=== PATIENT | male | born 1960 | race Caucasian/White ===

== ENCOUNTER → 2016-07-18 | Outpatient (CLI) | payer MEDICARE ==
--- NOTE | 2016-07-18 13:31 | REP ---
UNILATERAL LEFT RIBS, PA CHEST, FIVE VIEWS: HISTORY: Injury. The lungs are clear. The heart is normal in size. The pulmonary vasculature is normal in appearance. The bony structure is intact. IMPRESSION: No acute disease. Signed by Milan Desir MD 07/18/2016 01:32 P
== END ==
LOC: M LRY 09:15
PROVIDERS: ATTEND Physician Assistant
DX: S29.8XXA Other specified injuries of thorax, initial encounter (principal); Z12.5 Encounter for screening for malignant neoplasm of prostate; I25.10 Atherosclerotic heart disease of native coronary artery without angina pectoris; X58.XXXA Exposure to other specified factors, initial encounter; Y92.89 Other specified places as the place of occurrence of the external cause; Y93.89 Activity, other specified; Y99.8 Other external cause status
CPT/HCPCS: 71101; 80053; 80061; G0103; G0463

== ENCOUNTER → 2016-07-18 | Outpatient (REF) | payer MEDICARE ==
[2016-07-18 12:06] LABS: ALBUMIN 3.7 GM/DL (3.2-5.2); ALBUMIN/GLOBULIN RATIO 1.37 (1.00-1.93); ALKALINE PHOSPHATASE 122 U/L (45-117); ALT/SGPT 26 U/L (12-78); ANION GAP 6 MEQ/L (8-16); AST/SGOT 18 U/L (15-37); BILIRUBIN,TOTAL 0.3 MG/DL (0.2-1.0); BLOOD UREA NITROGEN 13 MG/DL (7-18); CALCIUM LEVEL 8.8 MG/DL (8.5-10.1); CARBON DIOXIDE LEVEL 32 MEQ/L (21-32); CHLORIDE LEVEL 104 MEQ/L (98-107); CHOLESTEROL LEVEL 132 MG/DL (<200); CREATININE FOR GFR 0.76 MG/DL (0.70-1.30); GLOMERULAR FILTRATION RATE > 60.0 (>56); GLUCOSE, FASTING 99 MG/DL (70-105); POTASSIUM SERUM 4.8 MEQ/L (3.5-5.1); SODIUM LEVEL 142 MEQ/L (136-145); TOTAL PROTEIN 6.4 GM/DL (6.4-8.2); TRIGLYCERIDES LEVEL 162 MG/DL (<150)
== END ==
LOC: M SFHCLERA 09:05
PROVIDERS: ATTEND Physician Assistant
DX: I25.10 Atherosclerotic heart disease of native coronary artery without angina pectoris (principal); Z12.5 Encounter for screening for malignant neoplasm of prostate
CPT/HCPCS: 80053; 80061; G0103

== ENCOUNTER → 2016-12-27 | Outpatient (REF) | payer MEDICARE ==
[2016-12-27 12:16] LABS: ALBUMIN 3.5 GM/DL (3.2-5.2); ALBUMIN/GLOBULIN RATIO 1.21 (1.00-1.93); ALKALINE PHOSPHATASE 132 U/L (45-117); ALT/SGPT 38 U/L (12-78); ANION GAP 5 MEQ/L (8-16); AST/SGOT 26 U/L (15-37); BILIRUBIN,TOTAL 0.5 MG/DL (0.2-1.0); BLOOD UREA NITROGEN 11 MG/DL (7-18); CARBON DIOXIDE LEVEL 32 MEQ/L (21-32); CHLORIDE LEVEL 103 MEQ/L (98-107); CHOLESTEROL LEVEL 157 MG/DL (<200); CREATININE FOR GFR 0.74 MG/DL (0.70-1.30); GLOMERULAR FILTRATION RATE > 60.0 (>56); GLUCOSE, FASTING 117 MG/DL (70-105); POTASSIUM SERUM 4.4 MEQ/L (3.5-5.1); SODIUM LEVEL 140 MEQ/L (136-145); TOTAL PROTEIN 6.4 GM/DL (6.4-8.2); TRIGLYCERIDES LEVEL 333 MG/DL (<150)
== END ==
LOC: M SFHCLERA 10:04
PROVIDERS: ATTEND Physician Assistant
DX: E78.2 Mixed hyperlipidemia (principal)

== ENCOUNTER → 2017-10-24 | Outpatient (REF) | payer MEDICARE ==
[2017-10-24 17:08] LABS: ALBUMIN/GLOBULIN RATIO 1.25 (1.00-1.93); ALKALINE PHOSPHATASE 121 U/L (45-117); ALT/SGPT 54 U/L (12-78); ANION GAP 5 MEQ/L (8-16); AST/SGOT 42 U/L (7-37); BILIRUBIN,TOTAL 0.7 MG/DL (0.2-1.0); BLOOD UREA NITROGEN 10 MG/DL (7-18); CALCIUM LEVEL 9.4 MG/DL (8.5-10.1); CARBON DIOXIDE LEVEL 30 MEQ/L (21-32); CHLORIDE LEVEL 104 MEQ/L (98-107); CHOLESTEROL LEVEL 136 MG/DL (<200); CREATININE FOR GFR 0.94 MG/DL (0.70-1.30); GLOMERULAR FILTRATION RATE > 60.0 (>56); GLUCOSE, FASTING 108 MG/DL (70-100); HDL CHOLESTEROL 34 MG/DL (>40); LDL CHOLESTEROL 39.8 MG/DL (<100); NON-HDL-C 102 MG/DL; POTASSIUM SERUM 5.3 MEQ/L (3.5-5.1); SODIUM LEVEL 139 MEQ/L (136-145); TOTAL PROTEIN 7.2 GM/DL (6.4-8.2); TRIGLYCERIDES LEVEL 311 MG/DL (<150); URIC ACID 6.6 MG/DL (3.5-7.2)
[2017-10-24 17:11] LABS: ESTIMATED AVERAGE GLUCOSE 128 MG/DL (60-110); HEMOGLOBIN A1c 6.1 %
== END ==
LOC: M SFHCLERA 10:44
DX: I25.10 Atherosclerotic heart disease of native coronary artery without angina pectoris (principal); M1A.09X0 Idiopathic chronic gout, multiple sites, without tophus (tophi); R73.01 Impaired fasting glucose
CPT/HCPCS: 84550

== ENCOUNTER → 2017-12-05 | Outpatient (REF) | payer MEDICARE ==
[2017-12-05 11:33] LABS: POTASSIUM SERUM 4.4 MEQ/L (3.5-5.1)
== END ==
LOC: M SFHCLERA 09:28
DX: E87.5 Hyperkalemia (principal)
CPT/HCPCS: 84132

== ENCOUNTER → 2018-03-27 | Outpatient (CLI) | payer MEDICARE | LOC: M SLEEP HO 12:55 | DX: G47.30 Sleep apnea, unspecified (principal) | CPT/HCPCS: G0399 ==

== ENCOUNTER → 2018-07-24 | Outpatient (REF) | payer MEDICARE ==
[2018-07-24 17:04] LABS: BASO # 0.1 10^3/uL (0.0-0.2); BASO % 0.8 % (0.0-1.0); EOS # 0.2 10^3/uL (0.0-0.50); EOS % 1.5 % (0.0-3.0); HEMATOCRIT 47.1 % (42.0-52.0); HEMOGLOBIN 15.8 g/dl (13.5-17.5); LYMPH # 2.4 10^3/uL (1.5-4.5); LYMPH % 23.8 % (24.0-44.0); MEAN CORPUSCULAR HEMOGLOBIN 29.8 pg (27.0-33.0); MEAN CORPUSCULAR HGB CONC 33.5 g/dl (32.0-36.5); MEAN CORPUSCULAR VOLUME 88.9 fl (80.0-96.0); MONO # 0.9 10^3/uL (0.0-0.8); NEUTROPHILS # 6.6 10^3/uL (1.8-7.7); NEUTROPHILS % 64.6 % (36.0-66.0); PLATELET COUNT, AUTOMATED 266 10^3/uL (150-450); WHITE BLOOD COUNT 10.2 10^3/uL (4.0-10.0)
[2018-07-24 17:16] LABS: HEMOGLOBIN A1c 6.7 %
[2018-07-24 17:17] LABS: ALBUMIN 4.5 GM/DL (3.2-5.2); ALT/SGPT 50 U/L (12-78); BILIRUBIN,TOTAL 0.7 MG/DL (0.2-1.0); BLOOD UREA NITROGEN 8 MG/DL (7-18); CALCIUM LEVEL 9.5 MG/DL (8.5-10.1); CARBON DIOXIDE LEVEL 28 MEQ/L (21-32); CHLORIDE LEVEL 97 MEQ/L (98-107); CREATININE FOR GFR 0.99 MG/DL (0.70-1.30); GLOMERULAR FILTRATION RATE > 60.0 (>56); GLUCOSE, FASTING 107 MG/DL (70-100); POTASSIUM SERUM 4.3 MEQ/L (3.5-5.1); SODIUM LEVEL 137 MEQ/L (136-145); TOTAL PROTEIN 7.9 GM/DL (6.4-8.2)
== END ==
LOC: M SFHCLERA 14:11
PROVIDERS: ATTEND Family Medicine
DX: I10 Essential (primary) hypertension (principal); R73.09 Other abnormal glucose

== ENCOUNTER → 2018-08-06 | Outpatient (REF) | payer MEDICARE ==
[2018-08-06 17:26] LABS: HEMOGLOBIN A1c 6.9 %
== END ==
LOC: M SFHCLERA 10:18
PROVIDERS: ATTEND Family Medicine
DX: R73.03 Prediabetes (principal)
CPT/HCPCS: 83036; G0463

== ENCOUNTER 2018-10-15 10:01 | Emergency (ER) | payer MEDICARE ==
[~2018-10-15] VITALS: Ht 182.9 cm; Wt 115.9 kg
[2018-10-15] MEDS ORDERED: AMLO5TAB6 (10:12)
[2018-10-15] MEDS ORDERED: LISI10TA4 (10:12)
[2018-10-15] MEDS ORDERED: ALLO100T (10:12)
[2018-10-15] MEDS ORDERED: METF500T4 (10:13)
[2018-10-15] MEDS ORDERED: TRAZ-163 (10:13)
[2018-10-15] MEDS ORDERED: ROSU5TAB4 PO (10:13)
[2018-10-15] MEDS ORDERED: CLON1TAB8 (10:13)
[2018-10-15] MEDS ORDERED: ROPI2TAB24 (10:13)
[2018-10-15] MEDS ORDERED: KETOROLAC 30 MG/ML VIAL (J1885) IV ONE (11:15)
[2018-10-15] MEDS ORDERED: methylPREDNISolone INJ 125 MG/2 ML VIAL (J2930) IV ONE (11:15)
[2018-10-15] MEDS ORDERED: BUPIVACAINE HCL 0.25% 10 ML VIAL SC ONE (11:15)
[2018-10-15 11:30] LABS: BASO # 0.1 10^3/uL (0.0-0.2); BASO % 0.6 % (0.0-1.0); EOS # 0.2 10^3/uL (0.0-0.50); EOS % 2.3 % (0.0-3.0); HEMATOCRIT 45.1 % (42.0-52.0); HEMOGLOBIN 15.1 g/dl (13.5-17.5); LYMPH % 29.1 % (24.0-44.0); MEAN CORPUSCULAR HEMOGLOBIN 30.6 pg (27.0-33.0); MEAN CORPUSCULAR HGB CONC 33.5 g/dl (32.0-36.5); MEAN CORPUSCULAR VOLUME 91.3 fl (80.0-96.0); MONO # 0.8 10^3/uL (0.0-0.8); MONO % 7.6 % (0.0-5.0); NEUTROPHILS # 6.2 10^3/uL (1.8-7.7); NEUTROPHILS % 59.6 % (36.0-66.0); PLATELET COUNT, AUTOMATED 255 10^3/uL (150-450); RED BLOOD COUNT 4.94 10^6/uL (4.30-6.10); WHITE BLOOD COUNT 10.3 10^3/uL (4.0-10.0)
[2018-10-15 11:53] LABS: BLOOD UREA NITROGEN 14 MG/DL (7-18); CARBON DIOXIDE LEVEL 27 MEQ/L (21-32); CHLORIDE LEVEL 102 MEQ/L (98-107); CREATININE FOR GFR 0.72 MG/DL (0.70-1.30); GLOMERULAR FILTRATION RATE > 60.0 (>56); GLUCOSE, FASTING 96 MG/DL (70-100); POTASSIUM SERUM 4.7 MEQ/L (3.5-5.1); SODIUM LEVEL 137 MEQ/L (136-145)
[2018-10-15 11:58] LABS: ERYTHROCYTE SEDIMENTATION RATE 8 mm/hr (0-20)
[2018-10-15] MEDS ORDERED: MORPHINE 4 MG/ML 1ML VIAL/SYRINGE (J2270) IV ONE (12:15)
--- NOTE | 2018-10-15 16:57 | REP ---
Emergency MRI study of the cervical spine without contrast: History: Right arm radiculopathy. Pain and numbness. Neck pain. Pain extending into the right hand. No comparison imaging. Technique: Sagittal and axial T1 and T2-weighted scans are acquired in the usual fashion with and without fat saturation. Sequences include spin echo, turbo spin-echo, and STIR imaging sequences. Findings: There is straightening of the normal cervical lordosis. Cortical and medullary bone signal intensity are normal. Vertebral body heights are preserved. Alignment is normal. Craniocervical junction is unremarkable. Cervical cord is normal in coarse, caliber and signal intensity on T1 and T2-weighted scans. Axial and sagittal images obtained at the C2-3 level demonstrate mild central disc bulging. No neural foraminal narrowing or central canal stenosis is seen. At C3-4, there is also mild diffuse disc bulging effacing the ventral subarachnoid space. No neural foraminal narrowing or central canal stenosis. At C4-5, there is disc space narrowing and diffuse disc bulging and posterior osteophytic ridging. There is left-sided mild uncovertebral spurring. No central canal stenosis or cord compression. At C5-6, there is disc space narrowing. A left posterior disc protrusion with osteophytic ridging is seen effacing the left ventral margin of the cord and subarachnoid space. There is left-sided neural foraminal narrowing at C5-6. Minimal right-sided uncovertebral spurs are seen at C5-6. At C6-7, there is mild diffuse disc bulging and osteophytic ridging. There is mild left and minimal right-sided uncovertebral spurring. No cord compression. At the C7-T1, there is a right sided disc herniation which effaces the thecal sac at the right ventral lateral margin of the cord at the medial aspect of the neural foramen. At the T1-2, there is a bilateral disc bulge as well, mild in degree. Impression: Degenerative spondylosis changes. Multilevel uncovertebral spurring on the left. There is a right posterolateral disc herniation at C7-T1 compressing the thecal sac along its ventral lateral margin and narrowing the neural foramen. Electronically Signed by Skip Hollsi MD 10/15/2018 06:56 P
[2018-10-15] MEDS ORDERED: GABAPENTIN 300 MG CAP PO ONE (17:30)
[2018-10-15 17:31] VITALS: BP 133/75
[2018-10-15] MEDS ORDERED: PRED10TA2 PO (17:37)
[2018-10-15] MEDS ORDERED: NEUR300C PO (17:37)
--- NOTE | 2018-10-16 11:02 | ED PDOC ---
Post-Departure Follow-Up dr jauregui faxed formal report of mri c spine for fu Jt Darnell MD Oct 16, 2018 11:01
== END 2018-10-15 17:46 | disposition home or self-care (01) ==
LOC: M ED 10:01
DX: M54.12 Radiculopathy, cervical region (principal); M47.13 Other spondylosis with myelopathy, cervicothoracic region; M50.223 Other cervical disc displacement at C6-C7 level; M51.24 Other intervertebral disc displacement, thoracic region; I10 Essential (primary) hypertension; E78.5 Hyperlipidemia, unspecified; I25.2 Old myocardial infarction; R25.1 Tremor, unspecified; F17.210 Nicotine dependence, cigarettes, uncomplicated; Z88.0 Allergy status to penicillin; Z88.1 Allergy status to other antibiotic agents; Z91.030 Bee allergy status; Z79.899 Other long term (current) drug therapy; Z79.84 Long term (current) use of oral hypoglycemic drugs
CPT/HCPCS: 20552; 36415; 72141; 80048; 85025; 85652; 96374; 96375; 99284; J1885; J2270; J2930

== ENCOUNTER → 2018-10-20 | Outpatient (REF) | payer MEDICARE, OTHER ==
[~2018-10-20] MED LIST: ALLO100T; AMLO5TAB6; CLON1TAB8; LISI10TA4; METF500T4; NEUR300C PO; PRED10TA2 PO; ROPI2TAB24; ROSU5TAB4 PO; TRAZ-163
[2018-10-20 16:06] LABS: INR 0.96; PROTHROMBIN TIME 12.9 SECONDS (12.1-14.4)
[2018-10-20 16:07] LABS: PARTIAL THROMBOPLASTIN TIME 31.7 SECONDS (25.4-37.6)
== END ==
LOC: M LABDRAW1 15:43
PROVIDERS: ATTEND Physical Medicine & Rehabilitation
DX: Z01.812 Encounter for preprocedural laboratory examination (principal)

== ENCOUNTER 2018-10-23 08:27 | Emergency (ER) | payer MEDICARE, OTHER ==
[~2018-10-23] VITALS: Ht 182.9 cm; Wt 113.6 kg
[2018-10-23] MEDS ORDERED: GABAPENTIN 300 MG CAP PO ONE (09:15)
[2018-10-23] MEDS ORDERED: KETOROLAC 60 MG/2 ML VIAL (J1885) IM ONE (09:15)
[2018-10-23 10:27] VITALS: BP 155/89
== END 2018-10-23 10:28 | disposition home or self-care (01) ==
LOC: M ED 08:27
DX: M50.10 Cervical disc disorder with radiculopathy, unspecified cervical region (principal); M47.9 Spondylosis, unspecified; M25.78 Osteophyte, vertebrae; I10 Essential (primary) hypertension; E11.9 Type 2 diabetes mellitus without complications; I25.2 Old myocardial infarction; E78.5 Hyperlipidemia, unspecified; Z87.891 Personal history of nicotine dependence; Z88.0 Allergy status to penicillin; Z91.030 Bee allergy status; Z88.1 Allergy status to other antibiotic agents; Z79.899 Other long term (current) drug therapy; Z79.84 Long term (current) use of oral hypoglycemic drugs
CPT/HCPCS: 96372; 99283; J1885

== ENCOUNTER → 2018-10-27 | Outpatient (REF) | payer MEDICARE ==
[2018-10-27 17:44] LABS: HEMOGLOBIN A1c 6.7 %
[2018-10-27 18:04] LABS: BLOOD UREA NITROGEN 9 MG/DL (7-18); CALCIUM LEVEL 8.6 MG/DL (8.5-10.1); CARBON DIOXIDE LEVEL 32 MEQ/L (21-32); CHLORIDE LEVEL 102 MEQ/L (98-107); CREATININE FOR GFR 0.67 MG/DL (0.70-1.30); GLOMERULAR FILTRATION RATE > 60.0 (>56); GLUCOSE, FASTING 153 MG/DL (70-100); POTASSIUM SERUM 4.3 MEQ/L (3.5-5.1); SODIUM LEVEL 140 MEQ/L (136-145)
== END ==
LOC: M SFHCLERA 15:04
PROVIDERS: ATTEND Family Medicine
DX: R73.9 Hyperglycemia, unspecified (principal)

== ENCOUNTER → 2019-02-10 | Outpatient (REF) | payer MEDICARE ==
[~2019-02-10] MED LIST changes: -ROSU5TAB4 PO; +ROSU5TAB5 PO
[2019-02-10 20:33] LABS: BASO # 0.1 10^3/uL (0.0-0.2); BASO % 0.7 % (0.0-1.0); EOS # 0.2 10^3/uL (0.0-0.50); EOS % 1.8 % (0.0-3.0); HEMATOCRIT 44.8 % (42.0-52.0); HEMOGLOBIN 14.9 g/dl (13.5-17.5); LYMPH # 3.2 10^3/uL (1.5-4.5); LYMPH % 25.6 % (24.0-44.0); MEAN CORPUSCULAR HEMOGLOBIN 30.3 pg (27.0-33.0); MEAN CORPUSCULAR HGB CONC 33.3 g/dl (32.0-36.5); MEAN CORPUSCULAR VOLUME 91.2 fl (80.0-96.0); MONO # 1.1 10^3/uL (0.0-0.8); MONO % 8.8 % (0.0-5.0); NEUTROPHILS # 7.8 10^3/uL (1.8-7.7); NEUTROPHILS % 62.4 % (36.0-66.0); PLATELET COUNT, AUTOMATED 267 10^3/uL (150-450); RED BLOOD COUNT 4.91 10^6/uL (4.30-6.10); WHITE BLOOD COUNT 12.5 10^3/uL (4.0-10.0)
[2019-02-10 20:40] LABS: ALBUMIN 4.4 GM/DL (3.2-5.2); ALT/SGPT 46 U/L (12-78); BILIRUBIN,TOTAL 0.3 MG/DL (0.2-1.0); BLOOD UREA NITROGEN 11 MG/DL (7-18); CARBON DIOXIDE LEVEL 32 MEQ/L (21-32); CHLORIDE LEVEL 102 MEQ/L (98-107); CREATININE FOR GFR 0.88 MG/DL (0.70-1.30); GLOMERULAR FILTRATION RATE > 60.0 (>56); GLUCOSE, FASTING 108 MG/DL (70-100); POTASSIUM SERUM 4.5 MEQ/L (3.5-5.1); SODIUM LEVEL 139 MEQ/L (136-145); TOTAL PROTEIN 7.2 GM/DL (6.4-8.2)
[2019-02-10 20:48] LABS: HEMOGLOBIN A1c 6.7 %
== END ==
LOC: M SFHCLERA 16:09
PROVIDERS: ATTEND Family Medicine
DX: E11.9 Type 2 diabetes mellitus without complications (principal)
CPT/HCPCS: 80053; 83036; 85025; G0463

== ENCOUNTER 2019-02-12 14:28 | Emergency (ER) | payer MEDICARE ==
[~2019-02-12] VITALS: Ht 182.9 cm; Wt 112.7 kg
[~2019-02-12 14:28] MED LIST changes: +METF-791; -METF500T4; -TRAZ-163; +TRAZ-257
[2019-02-12] MEDS ORDERED: CLINDAMYCIN 900 MG in IV 1 EA IV ONE (17:45)
[2019-02-12] MEDS ORDERED: MORPHINE 4 MG/ML 1ML VIAL/SYRINGE (J2270) IV ONE ×2 (17:45→20:15)
[2019-02-12] MEDS ORDERED: NS 1,000 ML IV ONE (17:45)
[2019-02-12] MEDS ORDERED: ISOVUE-370 76% 100ML VIAL (Q9967) As Ordered ONE (18:15)
[2019-02-12 18:18] LABS: BASO # 0.1 10^3/uL (0.0-0.2); BASO % 0.6 % (0.0-1.0); EOS # 0.3 10^3/uL (0.0-0.50); LYMPH % 21.9 % (24.0-44.0); MEAN CORPUSCULAR HGB CONC 33.3 g/dl (32.0-36.5); MONO # 1.2 10^3/uL (0.0-0.8); MONO % 8.6 % (0.0-5.0); NEUTROPHILS % 66.4 % (36.0-66.0); PLATELET COUNT, AUTOMATED 252 10^3/uL (150-450); WHITE BLOOD COUNT 13.6 10^3/uL (4.0-10.0)
[2019-02-12 18:47] LABS: ERYTHROCYTE SEDIMENTATION RATE 9 mm/hr (0-20)
--- NOTE | 2019-02-12 18:55 | REPVR ---
EXAM: CT Maxillofacial With Contrast EXAM DATE/TIME: 02/12/2019 5:45 PM CLINICAL HISTORY: 58 years old, male; Face pain and jaw pain; Additional info: R side facial swelling, jaw pain, tooth infec abscess. A beebee xiong the superior border of the area of interest TECHNIQUE: Imaging protocol: Computed tomography images of the face with intravenous contrast. Coronal and sagittal reformatted images were created and reviewed. Radiation optimization: All CT scans at this facility use at least one of these dose optimization techniques: automated exposure control; mA and/or kV adjustment per patient size (includes targeted exams where dose is matched to clinical indication); or iterative reconstruction. Contrast material: ISOVUE 370;Contrast volume: 75 ml;Contrast route: IV; COMPARISON: No relevant prior studies available. FINDINGS: Orbits: Orbits are normal. Globes are unremarkable. Sinuses: Inflammatory changes in the maxillary sinuses, right greater than left. Inflammatory changes in the left sphenoid sinus. Bones/joints: Degenerative spondylosis cervical spine. Vasculature: Enhancing mass within the left jugular fossa extending from the base of the skull inferiorly for 4.5 cm with maximum transverse dimensions of 2.1 x 2.9 cm. Soft tissues: Soft tissue edema demonstrated in the buccal soft tissues on the right. Finding may be related to an underlying dental etiology. Mild thickening of the periorbital soft tissues on the right. IMPRESSION: 1. Soft tissue edema demonstrated in the buccal soft tissues on the right. Finding may be related to an underlying dental etiology. 2. Inflammatory changes in the maxillary sinuses, right greater than left. 3. Jugular fossa mass as described above. Differential diagnosis includes a glomus jugulare paraganglioma, jugular schwannoma, meningioma and metastatic disease. Electronically signed by: Roly Malhotra On 02/12/2019 18:55:24 PM
[2019-02-12 22:14] VITALS: BP 177/97
== END 2019-02-12 22:18 | disposition short-term general hospital (02) ==
LOC: M ED 14:28
DX: K04.7 Periapical abscess without sinus (principal); R22.1 Localized swelling, mass and lump, neck; E11.9 Type 2 diabetes mellitus without complications; I10 Essential (primary) hypertension; E78.5 Hyperlipidemia, unspecified; I25.2 Old myocardial infarction; Z79.899 Other long term (current) drug therapy; Z79.84 Long term (current) use of oral hypoglycemic drugs; Z88.0 Allergy status to penicillin; Z88.1 Allergy status to other antibiotic agents; Z88.2 Allergy status to sulfonamides; Z88.8 Allergy status to other drugs, medicaments and biological substances; Z91.030 Bee allergy status
CPT/HCPCS: 70487; 80047; 83605; 85025; 85652; 86140; 87040; 96365; 96366; 96375; 96376; 99284; J2270; Q9967

== ENCOUNTER → 2019-02-24 | Outpatient (REF) | payer MEDICARE ==
[~2019-02-24] MED LIST changes: -METF-791; +METF500T4; +TRAZ-163; -TRAZ-257
[2019-03-04 00:06] LABS: METANEPHRINE PLASMA 19 pg/mL (0-62); NORMETANEPHRINE PLASMA 142 pg/mL (0-145)
== END ==
LOC: M SFHCLERA 15:52
PROVIDERS: ATTEND Family Medicine
DX: R22.1 Localized swelling, mass and lump, neck (principal)

== ENCOUNTER → 2019-03-15 | Outpatient (REF) | payer MEDICARE ==
[~2019-03-15] MED LIST changes: +METF-791; -METF500T4; -TRAZ-163; +TRAZ-257
[2019-03-16 16:39] LABS: CREATININE, URINE 41.6 MG/DL
[2019-03-20 14:25] LABS: FREE CORTISOL 24HR URINE 11 ug/24 hr (5-64); FREE CORTISOL URINE 4 ug/L (Undefined)
[2019-03-22 00:07] LABS: METANEPHRINE TOTAL URINE 23 ug/L (Undefined); METANEPHRINE URINE 63 ug/24 hr (45-290); NORMETANEPHRINE TOTAL URINE 126 ug/L (Undefined); NORMETANEPHRINE URINE 347 ug/24 hr (82-500)
== END ==
LOC: M SFHCLERA 14:46
PROVIDERS: ATTEND Family Medicine
DX: R22.1 Localized swelling, mass and lump, neck (principal)

== ENCOUNTER → 2019-03-23 | Outpatient (REF) | payer MEDICARE ==
[~2019-03-23] MED LIST changes: +TRAZ-163; -TRAZ-257
[2019-03-23 12:18] LABS: BLOOD UREA NITROGEN 16 MG/DL (7-18); CALCIUM LEVEL 9.9 MG/DL (8.5-10.1); CARBON DIOXIDE LEVEL 28 MEQ/L (21-32); CHLORIDE LEVEL 102 MEQ/L (98-107); GLOMERULAR FILTRATION RATE > 60.0 (>56); GLUCOSE, FASTING 150 MG/DL (70-100); POTASSIUM SERUM 4.7 MEQ/L (3.5-5.1); SODIUM LEVEL 138 MEQ/L (136-145)
[2019-03-23 12:24] LABS: BASO # 0.1 10^3/uL (0.0-0.2); BASO % 0.4 % (0.0-1.0); EOS # 0.2 10^3/uL (0.0-0.5); EOS % 1.2 % (0.0-3.0); HEMATOCRIT 49.8 % (42.0-52.0); HEMOGLOBIN 16.7 g/dl (13.5-17.5); LYMPH # 2.6 10^3/uL (1.5-5.0); LYMPH % 15.3 % (24.0-44.0); MEAN CORPUSCULAR HEMOGLOBIN 30.6 pg (27.0-33.0); MEAN CORPUSCULAR HGB CONC 33.5 g/dl (32.0-36.5); MEAN CORPUSCULAR VOLUME 91.2 fl (80.0-96.0); MONO # 1.6 10^3/uL (0.0-0.8); MONO % 9.3 % (0.0-5.0); NEUTROPHILS # 12.4 10^3/uL (1.5-8.5); NEUTROPHILS % 73.2 % (36.0-66.0); PLATELET COUNT, AUTOMATED 270 10^3/uL (150-450); RED BLOOD COUNT 5.46 10^6/uL (4.30-6.10); WHITE BLOOD COUNT 16.9 10^3/uL (4.0-10.0)
[2019-03-23 12:39] LABS: HEMOGLOBIN A1c 6.1 %
== END ==
LOC: M SFHCLERA 08:53
PROVIDERS: ATTEND Family Medicine
DX: Z01.818 Encounter for other preprocedural examination (principal)

== ENCOUNTER → 2019-03-24 | Outpatient (REF) | payer MEDICARE ==
[2019-03-24 14:13] LABS: BASO # 0.1 10^3/uL (0.0-0.2); BASO % 0.6 % (0.0-1.0); EOS # 0.3 10^3/uL (0.0-0.5); HEMOGLOBIN 14.9 g/dl (13.5-17.5); LYMPH # 3.1 10^3/uL (1.5-5.0); MEAN CORPUSCULAR HEMOGLOBIN 30.7 pg (27.0-33.0); MEAN CORPUSCULAR HGB CONC 33.9 g/dl (32.0-36.5); MEAN CORPUSCULAR VOLUME 90.5 fl (80.0-96.0); MONO # 1.1 10^3/uL (0.0-0.8); MONO % 10.4 % (0.0-5.0); NEUTROPHILS # 5.6 10^3/uL (1.5-8.5); NEUTROPHILS % 55.4 % (36.0-66.0); PLATELET COUNT, AUTOMATED 243 10^3/uL (150-450); RED BLOOD COUNT 4.86 10^6/uL (4.30-6.10); WHITE BLOOD COUNT 10.2 10^3/uL (4.0-10.0)
[2019-03-24 14:17] LABS: BLOOD UREA NITROGEN 15 MG/DL (7-18); CALCIUM LEVEL 9.6 MG/DL (8.5-10.1); CARBON DIOXIDE LEVEL 28 MEQ/L (21-32); CHLORIDE LEVEL 99 MEQ/L (98-107); CREATININE FOR GFR 0.77 MG/DL (0.70-1.30); GLOMERULAR FILTRATION RATE > 60.0 (>56); GLUCOSE, FASTING 90 MG/DL (70-100); POTASSIUM SERUM 3.9 MEQ/L (3.5-5.1); SODIUM LEVEL 136 MEQ/L (136-145)
== END ==
LOC: M SFHCLERA 11:36
PROVIDERS: ATTEND Family Medicine
DX: Z01.818 Encounter for other preprocedural examination (principal); D72.829 Elevated white blood cell count, unspecified

== ENCOUNTER → 2019-04-05 | Outpatient (CLI) | payer MEDICARE ==
--- NOTE | 2019-04-09 14:38 | REP ---
NUCLEAR WHOLE BODY TUMOR IMAGING OCTREOSCAN: Following the intravenous of 6.6 mCi of Indium-111 Octreoscan, whole body images are obtained in multiple projections at 4 hours, 24 hours, and 48 hours postinjection. SPECT imaging is also performed in the axial, coronal, and sagittal planes. Correlation is made with CT maxillofacial with IV contrast 02/12/2019. At the site of the enhancing mass in the left neck soft tissues there is a focus of increased radiopharmaceutical uptake. Expected liver, spleen, renal and bladder activity are seen as well as scattered activity in the colon. The kidneys demonstrate an appearance suggesting a horseshoe kidney configuration. In addition there is somewhat nodular activity along the inferior aspect of the kidneys suggesting additional adjacent soft tissue uptake which may represent a retroperitoneal mass. No other abnormal uptake is seen. IMPRESSION: Focus of increased uptake in the left neck soft tissues corresponds to the mass seen on the CT maxillofacial region 02/12/2019. In the abdomen there is renal activity suggesting a horseshoe kidney configuration. There is additional possible adjacent retroperitoneal nodular soft tissue uptake at the inferior aspect of the kidneys possibly indicating the presence of a retroperitoneal mass. Recommend further evaluation with CT abdomen and pelvis with IV contrast. Electronically Signed by Obed Denson MD 04/12/2019 04:59 P
== END ==
LOC: M RAD 08:32
PROVIDERS: ATTEND Neurological Surgery
DX: D49.7 Neoplasm of unspecified behavior of endocrine glands and other parts of nervous system (principal)
CPT/HCPCS: 78803; 78804; A9572

== ENCOUNTER → 2019-04-28 | Outpatient (CLI) | payer MEDICARE ==
[2019-04-28 20:39] LABS: BLOOD UREA NITROGEN 8 MG/DL (7-18); CREATININE FOR GFR 0.85 MG/DL (0.70-1.30); GLOMERULAR FILTRATION RATE > 60.0 (>56)
== END ==
LOC: M LRY 15:37
PROVIDERS: ATTEND Neurological Surgery
DX: D49.7 Neoplasm of unspecified behavior of endocrine glands and other parts of nervous system (principal)

== ENCOUNTER → 2019-05-03 | Outpatient (CLI) | payer MEDICARE ==
[~2019-05-03] MED LIST changes: +GASTROGRAFIN SOLUTION 30ML (Q9963) As Ordered ONE; +ISOVUE-370 76% 100ML VIAL (Q9967) As Ordered ONE
--- NOTE | 2019-05-03 11:52 | REP ---
Clinical: Carcinoma. Technique: Axial contrast enhanced images from the thoracic inlet to the upper abdomen with coronal and sagittal re-formations using 100 ml Isovue 370 intravenous contrast material. Findings: Lung nickerson are well-aerated and clear. No consolidation, nodule or mass lesion. No pleural effusion. No pneumothorax. Tracheobronchial tree is patent. No obvious adenopathy. Mediastinum demonstrates normal thoracic aorta and pulmonary vasculature. Atherosclerotic changes to the coronary arteries noted without cardiomegaly or pericardial effusion. Musculoskeletal structures are intact. Impression: No acute mediastinal or pleuroparenchymal process. No evidence for primary neoplasm or metastatic disease. Electronically Signed by Jason Murray MD 05/03/2019 11:44 A
--- NOTE | 2019-05-03 11:57 | REP ---
Clinical: Neoplasm. Technique: Axial contrast enhanced images from the lung bases to the pubic symphysis using oral (per protocol) and 100 ml Isovue 370 intravenous contrast material with coronal and sagittal re-formations. Precontrast and delayed images of the abdomen obtained. Findings: Liver, spleen, pancreas, gallbladder, and bilateral adrenal glands are normal. Horseshoe kidney noted without hydronephrosis or further abnormality. The enteric system is without obstruction or acute inflammatory process. Scattered sigmoid diverticula noted without acute diverticulitis. Pelvis demonstrates normal bladder and age appropriate prostate/seminal vesicles. No ascites. No free air. No adenopathy. Abdominal aorta without aneurysm or dissection. Musculoskeletal structures demonstrate degenerative changes along with cystic changes in the bilateral iliac bones which are nonspecific but raise the possibility of osseous metastatic disease given the history of neoplasm. Impression: 1. Congenital horseshoe kidney. 2. Sigmoid diverticula without acute diverticulitis. 3. Few cystic changes to the bilateral iliac bones are nonspecific. Electronically Signed by Jason Murray MD 05/03/2019 11:48 A
--- NOTE | 2019-05-03 15:20 | REP ---
WHOLE BODY BONE SCAN: Following the intravenous administration of 22 mCi of technetium-99m MDP, patient's whole body is imaged in the anterior and posterior projections with additional oblique and lateral views obtained. Increased uptake in the maxilla bilaterally as well as in the right mandible is compatible with recent dental procedures. Photopenic right knee prosthesis is noted with normal adjacent osseous activity. Linear uptake at the L3-4 disc level is compatible with degenerative disc disease. No abnormal uptake is seen in the axial or appendicular skeleton that would suggest osseous metastases. IMPRESSION: Increased uptake in the maxilla and right mandible compatible with recent dental procedures. No compelling scintigraphic evidence of osseous metastases. Electronically Signed by Obed Denson MD 05/03/2019 03:42 P
== END ==
LOC: M RAD 09:20
PROVIDERS: ATTEND Neurological Surgery
DX: D49.7 Neoplasm of unspecified behavior of endocrine glands and other parts of nervous system (principal); K57.30 Diverticulosis of large intestine without perforation or abscess without bleeding; Q63.1 Lobulated, fused and horseshoe kidney
CPT/HCPCS: 71260; 74178; 78306; A9503; Q9963; Q9967

== ENCOUNTER → 2019-09-16 | Outpatient (CLI) | payer MEDICARE ==
[~2019-09-16] MED LIST changes: -GASTROGRAFIN SOLUTION 30ML (Q9963) As Ordered ONE; -ISOVUE-370 76% 100ML VIAL (Q9967) As Ordered ONE; -TRAZ-163; +TRAZ-257
--- NOTE | 2019-09-16 15:24 | REP ---
PA and lateral chest: Comparison is the chest CT dated 05/03/2019. The lung nickerson are clear. The cardiac size is normal. The deandra, mediastinum, and skeletal structures are unremarkable. Impression: Negative PA and lateral chest. There is no interval change. Electronically Signed by Obed Vallecillo MD 09/16/2019 03:15 P
== END ==
LOC: M LRY 14:40
PROVIDERS: ATTEND Family Medicine
DX: Z01.818 Encounter for other preprocedural examination (principal); J39.2 Other diseases of pharynx; Z79.899 Other long term (current) drug therapy
CPT/HCPCS: 71046; 80053; 83036; 85025; 85610; 85730; 93005; G0463

== ENCOUNTER → 2019-09-16 | Outpatient (REF) | payer MEDICARE ==
[2019-09-16 17:03] LABS: BASO # 0.1 10^3/uL (0.0-0.2); BASO % 0.5 % (0.0-1.0); EOS # 0.2 10^3/uL (0.0-0.5); EOS % 1.6 % (0.0-3.0); HEMATOCRIT 50.2 % (42.0-52.0); HEMOGLOBIN 16.5 g/dl (13.5-17.5); LYMPH # 2.8 10^3/uL (1.5-5.0); LYMPH % 21.7 % (24.0-44.0); MEAN CORPUSCULAR HEMOGLOBIN 29.6 pg (27.0-33.0); MEAN CORPUSCULAR HGB CONC 32.9 g/dl (32.0-36.5); MONO % 7.7 % (0.0-5.0); NEUTROPHILS # 8.7 10^3/uL (1.5-8.5); NEUTROPHILS % 67.8 % (36.0-66.0); PLATELET COUNT, AUTOMATED 256 10^3/uL (150-450); RED BLOOD COUNT 5.58 10^6/uL (4.30-6.10); WHITE BLOOD COUNT 12.8 10^3/uL (4.0-10.0)
[2019-09-16 17:31] LABS: ALBUMIN 4.3 GM/DL (3.2-5.2); ALT/SGPT 52 U/L (12-78); BILIRUBIN,TOTAL 0.7 MG/DL (0.2-1.0); BLOOD UREA NITROGEN 10 MG/DL (7-18); CALCIUM LEVEL 9.7 MG/DL (8.5-10.1); CARBON DIOXIDE LEVEL 30 MEQ/L (21-32); CHLORIDE LEVEL 98 MEQ/L (98-107); CREATININE FOR GFR 0.79 MG/DL (0.70-1.30); GLOMERULAR FILTRATION RATE > 60.0 (>56); GLUCOSE, FASTING 109 MG/DL (70-100); POTASSIUM SERUM 4.6 MEQ/L (3.5-5.1); SODIUM LEVEL 135 MEQ/L (136-145); TOTAL PROTEIN 7.5 GM/DL (6.4-8.2)
[2019-09-16 18:12] LABS: HEMOGLOBIN A1c 6.4 %; INR 1.02; PARTIAL THROMBOPLASTIN TIME 33.6 SECONDS (25.0-38.4); PROTHROMBIN TIME 13.1 SECONDS (11.8-14.0)
== END ==
LOC: M SFHCLERA 14:03
PROVIDERS: ATTEND Family Medicine
DX: Z01.818 Encounter for other preprocedural examination (principal); J39.2 Other diseases of pharynx; Z79.899 Other long term (current) drug therapy

== ENCOUNTER 2019-12-22 14:05 | Emergency (ER) | payer MEDICARE ==
[~2019-12-22] VITALS: Ht 182.9 cm; Wt 105.3 kg
[~2019-12-22 14:05] MED LIST changes: -METF-791; +METF-838
[2019-12-22] MEDS ORDERED: OXYC5SOL11 GT (14:13)
[2019-12-22] MEDS ORDERED: NORT25CA2 PO (14:13)
[2019-12-22] MEDS ORDERED: FLUOXETINE PO (14:13)
[2019-12-22 15:47] LABS: BASO # 0.1 10^3/uL (0.0-0.2); BASO % 0.7 % (0.0-1.0); EOS # 0.4 10^3/uL (0.0-0.5); EOS % 2.5 % (0.0-3.0); HEMATOCRIT 42.6 % (42.0-52.0); HEMOGLOBIN 13.4 g/dl (13.5-17.5); LYMPH # 3.9 10^3/uL (1.5-5.0); LYMPH % 23.8 % (24.0-44.0); MEAN CORPUSCULAR HEMOGLOBIN 29.5 pg (27.0-33.0); MEAN CORPUSCULAR HGB CONC 31.5 g/dl (32.0-36.5); MEAN CORPUSCULAR VOLUME 93.6 fl (80.0-96.0); MONO # 1.5 10^3/uL (0.0-0.8); NEUTROPHILS # 9.9 10^3/uL (1.5-8.5); NEUTROPHILS % 60.6 % (36.0-66.0); PLATELET COUNT, AUTOMATED 403 10^3/uL (150-450); RED BLOOD COUNT 4.55 10^6/uL (4.30-6.10); WHITE BLOOD COUNT 16.4 10^3/uL (4.0-10.0)
[2019-12-22 15:59] LABS: INR 0.99; PROTHROMBIN TIME 12.8 SECONDS (11.8-14.0)
[2019-12-22 16:08] LABS: ERYTHROCYTE SEDIMENTATION RATE 80 mm/hr (0-20)
[2019-12-22] MEDS ORDERED: ONDANSETRON 4MG/2ML VIAL IV ONE (16:15)
[2019-12-22] MEDS ORDERED: MORPHINE 4 MG/ML 1ML VIAL/SYRINGE (J2270) IV ONE (16:15)
[2019-12-22 16:18] LABS: BLOOD UREA NITROGEN 37 MG/DL (7-18); C REACTIVE PROTEIN QUANTITATIV 1.88 MG/DL (0.00-0.30); CALCIUM LEVEL 10.1 MG/DL (8.5-10.1); CARBON DIOXIDE LEVEL 34 MEQ/L (21-32); CHLORIDE LEVEL 95 MEQ/L (98-107); CK-MB VALUE MASS 1.5 NG/ML (<3.6); CPK CREATINE PHOSPHOKINASE 104 U/L (39-308); CREATININE FOR GFR 1.32 MG/DL (0.70-1.30); GLOMERULAR FILTRATION RATE 59.3 (>56); GLUCOSE, FASTING 128 MG/DL (70-100); MB/CK RELATIVE INDEX 1.44 (< OR =4); POTASSIUM SERUM 5.7 MEQ/L (3.5-5.1); SODIUM LEVEL 133 MEQ/L (136-145); TROPONIN I < 0.02 NG/ML (< 0.10)
--- NOTE | 2019-12-22 16:57 | REP ---
LEFT UPPER EXTREMITY DUPLEX VENOUS ULTRASOUND: HISTORY: Left arm pain and swelling. The patient gives a history of a previous venous thrombus below the elbow. We were not able to visualize left internal jugular vein. Right internal jugular vein is patent. Intimal flow is seen in the left subclavian vein. The left cephalic, brachial, and mid and proximal basilic veins are anechoic and compressible. There is a short segment of occlusive thrombosis of the basilic vein at the antecubital fossa on the left. No other evidence of DVT. IMPRESSION: Short segment of occlusive thrombosis of the left basilic vein at the antecubital fossa. Minimal flow is seen in the subclavian on the left, and we were not able to see the left internal jugular vein. Otherwise negative left upper extremity venous ultrasound. Electronically Signed by Skip Hollis MD 12/22/2019 05:23 P
[2019-12-22] MEDS ORDERED: NS 1,000 ML IV ONE (17:00)
[2019-12-22] MEDS ORDERED: dexameTHASONE 4 MG/ML 1ML VIAL (J1100 PER 1MG) IV ONE (19:00)
[2019-12-22] MEDS ORDERED: METOCLOPRAMIDE INJ 10MG/2ML VIAL (J2765 PER 1) IV ONE (19:00)
[2019-12-22] MEDS ORDERED: diphenhydrAMINE 50MG/ML VIAL (J1200) IV ONE (19:00)
[2019-12-22 19:07] LABS: BLOOD UREA NITROGEN 32 MG/DL (7-18); CALCIUM LEVEL 9.3 MG/DL (8.5-10.1); CARBON DIOXIDE LEVEL 30 MEQ/L (21-32); CHLORIDE LEVEL 98 MEQ/L (98-107); CREATININE FOR GFR 1.01 MG/DL (0.70-1.30); GLOMERULAR FILTRATION RATE > 60.0 (>56); GLUCOSE, FASTING 119 MG/DL (70-100); POTASSIUM SERUM 4.7 MEQ/L (3.5-5.1); SODIUM LEVEL 133 MEQ/L (136-145)
--- NOTE | 2019-12-22 19:23 | REPVR ---
PROCEDURE INFORMATION: Exam: CT Head Without Contrast Exam date and time: 12/22/2019 6:58 PM Age: 59 years old Clinical indication: Pain; Headache; Prior surgery; Surgery date: <1 month; Surgery type: Had brain tumor removed 2 wks ago; Additional info: Left post occipital pain, known brain tumor TECHNIQUE: Imaging protocol: Computed tomography of the head without contrast. Radiation optimization: All CT scans at this facility use at least one of these dose optimization techniques: automated exposure control; mA and/or kV adjustment per patient size (includes targeted exams where dose is matched to clinical indication); or iterative reconstruction. COMPARISON: No relevant prior studies available. FINDINGS: Brain: Normal. No hemorrhage. Unremarkable white matter. No mass effect. Ventricles: Normal. No ventriculomegaly. Bones/joints: Unremarkable. No acute fracture. Sinuses: Visualized sinuses are unremarkable. No fluid levels. Mastoid air cells: Visualized mastoid air cells are well aerated. Soft tissues: Unremarkable. IMPRESSION: No acute intracranial abnormality. Electronically signed by: Tera Vora On 12/22/2019 19:23:21 PM
[2019-12-22] MEDS ORDERED: OXYCODONE/APAP 5MG/325MG(BULK FOR ED) 1 TABLET PO ONE (19:45)
[2019-12-22 19:58] VITALS: BP 138/72
--- NOTE | 2019-12-23 01:32 | ECGEPIP ---
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
== END 2019-12-22 20:01 | disposition home or self-care (01) ==
LOC: M ED 14:05
DX: I82.612 Acute embolism and thrombosis of superficial veins of left upper extremity (principal); G43.909 Migraine, unspecified, not intractable, without status migrainosus; Z98.890 Other specified postprocedural states; E11.9 Type 2 diabetes mellitus without complications; I10 Essential (primary) hypertension; E78.5 Hyperlipidemia, unspecified; I25.2 Old myocardial infarction; G25.81 Restless legs syndrome; Z85.841 Personal history of malignant neoplasm of brain; Z88.0 Allergy status to penicillin; Z88.1 Allergy status to other antibiotic agents; Z88.2 Allergy status to sulfonamides; Z91.030 Bee allergy status; Z79.899 Other long term (current) drug therapy; Z79.84 Long term (current) use of oral hypoglycemic drugs
CPT/HCPCS: 70450; 80048; 82550; 82553; 84484; 85025; 85610; 85652; 86140; 87040; 93005; 93971; 96361; 96374; 96375; 99284; J1100; J1200; J2270; J2405; J2765

== ENCOUNTER → 2019-12-24 | Outpatient (REF) | payer MEDICARE ==
[~2019-12-24] MED LIST changes: +FLUOXETINE PO; +NORT25CA2 PO; +OXYC5SOL11 GT
[2019-12-24 18:02] LABS: HEMOGLOBIN 12.7 g/dl (13.5-17.5); MEAN CORPUSCULAR HEMOGLOBIN 30.3 pg (27.0-33.0); MEAN CORPUSCULAR VOLUME 97.9 fl (80.0-96.0); PLATELET COUNT, AUTOMATED 360 10^3/uL (150-450); RED BLOOD COUNT 4.19 10^6/uL (4.30-6.10); WHITE BLOOD COUNT 16.2 10^3/uL (4.0-10.0)
[2019-12-24 18:31] LABS: BLOOD UREA NITROGEN 48 MG/DL (7-18); CARBON DIOXIDE LEVEL 31 MEQ/L (21-32); CHLORIDE LEVEL 99 MEQ/L (98-107); CREATININE FOR GFR 1.29 MG/DL (0.70-1.30); GLOMERULAR FILTRATION RATE > 60.0 (>56); GLUCOSE, FASTING 95 MG/DL (70-100); POTASSIUM SERUM 5.4 MEQ/L (3.5-5.1); SODIUM LEVEL 137 MEQ/L (136-145)
== END ==
LOC: M SHH 17:18
PROVIDERS: ATTEND Physician Assistant Medical
DX: D72.829 Elevated white blood cell count, unspecified (principal)

== ENCOUNTER 2020-01-03 14:30 | Outpatient (RCR) | payer MEDICARE ==
--- NOTE | 2020-01-04 08:10 | REP ---
Examination Requested: Cookie Swallow Reason For Exam: Dysphasia The procedure was performed by KENTRELL Lopez, under the direct supervision of Dr. Hollis. The procedure was performed with Kerrie Hayden from speech pathology present. 5 ml aliquots of thin, pudding, nectar, soft food, honey and smooth puree consistency barium was administered. No aspiration or penetration was visualized. The detailed report of this examination will be provided by speech pathology. 2.4 minutes of fluoroscopy time was utilized for this procedure. Reviewed by KENTRELL Larry 01/03/2020 03:14 P Electronically Signed by Skip Hollis MD 01/04/2020 08:01 A
== END 2020-01-04 ==
LOC: M RAD 14:30
PROVIDERS: ATTEND Radiology Radiation Oncology
DX: R13.10 Dysphagia, unspecified (principal)

== ENCOUNTER → 2020-01-11 | Outpatient (CLI) | payer MEDICARE ==
[~2020-01-11] MED LIST changes: +AMLO1TAB24; -AMLO5TAB6; +PROHANCE 279.3MG/ML 15ML VIAL As Ordered ONE; +PROHANCE 279.3MG/ML 5ML VIAL As Ordered ONE
--- NOTE | 2020-01-13 11:31 | REP ---
MRI orbits/soft tissue neck: 01/11/2020. Indication: Paraganglioma. Technique: Multiplanar short and long TR sequences of the neck soft tissues were obtained including post gadolinium imaging. Comparison: No previous MRI studies are available for direct comparison. Findings: There is abnormal signal intensity and pathologic gadolinium enhancement within the left parapharyngeal space and extends to the skull base adjacent to the carotid artery is. There is moderate narrowing of the aerodigestive tract just below the epiglottis/superior to the larynx. There is abnormal enhancement within the left palatine and lingular tonsils as well. Paranasal sinus mucosal disease is noted most pronounced within the right maxillary sinus without air fluid levels. The findings should be clinically correlated as well as compared to previous imaging. Impression: Abnormal signal and gadolinium enhancement, predominately within the left parapharyngeal space as described without abnormal fluid collection. Please correlate clinically and compared to an the previous MRI gadolinium enhanced imaging. Electronically Signed by J Carlos Stallworth DO 01/13/2020 11:22 A
== END ==
LOC: M RAD 15:13
PROVIDERS: ATTEND Nurse Practitioner Family
DX: D44.7 Neoplasm of uncertain behavior of aortic body and other paraganglia (principal)
CPT/HCPCS: 70542; A9576; G0463

== ENCOUNTER → 2020-03-14 | Outpatient (CLI) | payer MEDICARE ==
[~2020-03-14] MED LIST changes: -PROHANCE 279.3MG/ML 15ML VIAL As Ordered ONE; -PROHANCE 279.3MG/ML 5ML VIAL As Ordered ONE
--- NOTE | 2020-04-04 12:44 | REP ---
COOKIE SWALLOW The procedure was performed under the direct supervision of Dr. Denson. The procedure was performed with Kerrie Ya from speech pathology present. 5 mL aliquots of thin, pudding, soft, solid, and mixed fruit consistency barium as well as a barium pill were administered. There was no evidence of penetration or aspiration. A detailed report of this examination will be provided by speech pathology. 2 minutes of fluoroscopy time was utilized for this procedure. MIGUE
== END ==
LOC: M ST 14:05
PROVIDERS: ATTEND Nurse Practitioner Family
DX: R13.10 Dysphagia, unspecified (principal)

== ENCOUNTER → 2020-03-28 | Outpatient (POV) | payer MEDICARE ==
--- NOTE | 2020-03-29 13:51 | IRCOV ---
[facility] IR Consult Office Visit IR Consult Office Visit DATE: Mar 28, 2020 Patient agreed to this video telephone conference consultation. Duration of call 15 minutes. REASON FOR CONSULTATION/CHIEF COMPLAINT: PEG tube removal; placed elsewhere. HISTORY OF PRESENT ILLNESS: 59-year-old male with history of left jugular foramen mass removed surgically with swallowing issues post surgery. Patient had a PEG tube placed at [facility] in November of this year. Patient states he would like the PEG tube removed. He's been working with speech therapy and his swallowing has improved. Patient states he is able to tolerate soft foods okay and has not used the PEG tube in 3 weeks. Patient states he is getting adequate nutrition and there is no weight loss. ALLERGIES: Please see below. HOME MEDICATIONS: Please see below. 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 MARK NAVARRO, SURGERY DATE POSTPONED) PAST SURGICAL HISTORY: RIGHT KNEE COMPLETE REPLACEMENT HEAD AND NECK TUMOR REMOVAL 12/02/2019 FAMILY HISTORY: Noncontributory SOCIAL HISTORY: Ex-smoker. Quit in 2018. Denies drugs or alcohol. REVIEW OF SYSTEMS: Otherwise negative PHYSICAL EXAMINATION: Video conferencing was performed. Patient has a G tube without a balloon port. This would mean he has a mushroom cap on the inside. PEG site appears clear without redness, discharge or swelling. LABORATORY DATA: 12/24/2019 hemoglobin 12.7 hematocrit 41 WBC 16.2 platelets 360 sodium 137 potassium 5.4 BUN 48 creatinine 1.29 GFR greater than 60 INR 0.9 Imaging: I personally reviewed the last CT abdomen obtained April 2019. No G- tube in place at that time. ASSESSMENT/PLAN: 59-year-old male with history of head and neck surgery and swallowing issues post surgery with G-tube placed endoscopically at [facility] in November of this year. This is a mushroom type G-tube which can be percutaneously removed. Patient is not on any blood thinners. Patient may require moderate sedation for the procedure. We will schedule the patient for PEG tube removal. I spent 15 minutes in consultation with the patient. Thank you for this referral. DANIEL Conway MD Allergies Coded Allergies: sulfamethoxazole (Verified Allergy, Intermediate, rash, 02/12/19) Penicillins (Verified Allergy, Unknown, 10/15/18) bee pollen (Verified Allergy, Unknown, 10/15/18) erythromycin base (Verified Allergy, Unknown, 10/15/18) trimethoprim (Verified Allergy, Unknown, rash, 02/12/19) Home Medications Scheduled Allopurinol (Allopurinol), DAILY, (Reported) Amlodipine Besylate (Amlodipine Besylate), DAILY, (Reported) Clonazepam (Clonazepam), QPM, (Reported) Gabapentin (Neurontin), 1 CAP PO TID Lisinopril (Lisinopril), DAILY, (Reported) Metformin HCl (Metformin HCl ER), QAM, (Reported) Nortriptyline HCl (Nortriptyline HCl), PO BID, (Reported) Ropinirole HCl (Ropinirole ER), QPM, (Reported) Rosuvastatin Calcium (Rosuvastatin Calcium), 20 MG PO DAILY, (Reported) Trazodone HCl (Trazodone HCl), QPM, (Reported) [Fluoxetine], PO DAILY, (Reported) Scheduled PRN Oxycodone HCl (Oxycodone HCl), GT PRN PRN for PAIN, (Reported) PJ VANCE MD Mar 29, 2020 13:51
== END ==
LOC: M TMIRPOV 11:19
PROVIDERS: ATTEND Radiology Diagnostic Radiology
DX: Z43.1 Encounter for attention to gastrostomy (principal)

== ENCOUNTER → 2020-04-05 | Outpatient (CLI) | payer MEDICARE ==
[~2020-04-05] MED LIST changes: +ISOVUE-300 61% 50ML VIAL As Ordered ONE; +LIDOCAINE 1% MDV 20ML VIAL As Ordered ONE; +MIDAZOLAM INJ 2MG/2ML VIAL (J2250 PER 1MG) As Ordered ONE; +PERCOCET 5MG/325MG TAB As Ordered ONE; +PERCOCET 5MG/325MG TAB PO ONE; +diphenhydrAMINE 50MG/ML VIAL (J1200) As Ordered ONE; +fentaNYL 100 MCG/2 ML INJECTION (J3010) As Ordered ONE
[2020-04-05 14:14] VITALS: BP 155/95
--- NOTE | 2020-04-06 10:14 | POST-OPPD ---
Postoperative Procedure Note Date Of Procedure: Apr 05, 2020 Time Of Procedure: 16:00 IR percutaneous removal of endoscopically placed, mushroom cap Gastrostomy catheter under moderate sedation. Indication: Prior vagus nerve injury and swallowing difficulties. Patient is better able to tolerate nutrition by mouth and would like PEG tube removed. This is not a balloon gastrostomy catheter but a mushroom cap Gastrostomy catheter, removed percutaneously. Procedure: The patient was advised of the benefits, risks, and alternatives of the procedure and informed consent was obtained. A time out was performed with verification of the patient's name, MRN, site of procedure, and type of procedure to be performed. The patient was positioned in the supine position on the table. Moderate sedation was performed by the physician including the presence of an independent trained observer who assisted in monitoring the patient's level of consciousness and physiological status. Following the administration of fentanyl and Versed, the physician spent 30 minutes of continuous ibal-ll-nlnd time with the patient. Business Management Manager radiograph demonstrates mushroom cap gastrostomy catheter. Traction was applied to the PEG tube. Patient complained of discomfort therefore, further sedation was administered. After 5 minutes, repeat traction on the PEG tube was applied. The catheter was removed in its entirety. Pressure held and a sterile dressing was applied to the site. Follow-up radiograph demonstrates complete removal of the PEG tube. EBL: Less than 5 mL Consultations: None Impression: Successful percutaneous removal of mushroom cap PEG tube under moderate sedation. Thank you for this referral PJ VANCE MD Apr 06, 2020 10:14
== END ==
LOC: M IRPRO 10:56
PROVIDERS: ATTEND Radiology Diagnostic Radiology
DX: Z43.1 Encounter for attention to gastrostomy (principal)
CPT/HCPCS: 49999; 99152; 99153; J1200; J2250; J3010; Q9967

== ENCOUNTER → 2020-10-06 | Outpatient (CLI) | payer MEDICARE ==
[~2020-10-06] MED LIST changes: -ISOVUE-300 61% 50ML VIAL As Ordered ONE; -LIDOCAINE 1% MDV 20ML VIAL As Ordered ONE; +LISI10TA22; -LISI10TA4; -MIDAZOLAM INJ 2MG/2ML VIAL (J2250 PER 1MG) As Ordered ONE; -PERCOCET 5MG/325MG TAB As Ordered ONE; -PERCOCET 5MG/325MG TAB PO ONE; -diphenhydrAMINE 50MG/ML VIAL (J1200) As Ordered ONE; -fentaNYL 100 MCG/2 ML INJECTION (J3010) As Ordered ONE
[2020-10-06 16:39] LABS: BASO # 0.1 10^3/uL (0.0-0.2); BASO % 0.6 % (0.0-1.0); EOS # 0.3 10^3/uL (0.0-0.5); EOS % 2.5 % (0.0-3.0); HEMATOCRIT 43.7 % (42.0-52.0); LYMPH # 2.9 10^3/uL (1.5-5.0); LYMPH % 23.9 % (24.0-44.0); MEAN CORPUSCULAR HEMOGLOBIN 30.2 pg (27.0-33.0); MEAN CORPUSCULAR VOLUME 94.4 fl (80.0-96.0); MONO # 0.8 10^3/uL (0.0-0.8); MONO % 6.4 % (2.0-8.0); NEUTROPHILS % 65.6 % (36.0-66.0); PLATELET COUNT, AUTOMATED 203 10^3/uL (150-450); RED BLOOD COUNT 4.63 10^6/uL (4.30-6.10); WHITE BLOOD COUNT 12.1 10^3/uL (4.0-10.0)
[2020-10-06 17:05] LABS: ALBUMIN 3.6 GM/DL (3.2-5.2); ALT/SGPT 25 U/L (12-78); BILIRUBIN,TOTAL 0.4 MG/DL (0.2-1.0); BLOOD UREA NITROGEN 11 MG/DL (7-18); CALCIUM LEVEL 8.6 MG/DL (8.5-10.1); CARBON DIOXIDE LEVEL 30 MEQ/L (21-32); CHLORIDE LEVEL 103 MEQ/L (98-107); CHOLESTEROL LEVEL 151 MG/DL (<200); CHOLESTEROL RISK RATIO 3.145 (<5); CREATININE FOR GFR 0.85 MG/DL (0.70-1.30); GLOMERULAR FILTRATION RATE > 60.0 (>56); GLUCOSE, FASTING 85 MG/DL (70-100); HDL CHOLESTEROL 48 MG/DL (>40); LDL CHOLESTEROL 82 MG/DL (<100); NON-HDL-C 103 MG/DL; POTASSIUM SERUM 4.5 MEQ/L (3.5-5.1); SODIUM LEVEL 137 MEQ/L (136-145); TOTAL PROTEIN 6.6 GM/DL (6.4-8.2); TRIGLYCERIDES LEVEL 106 MG/DL (<150)
[2020-10-06 17:10] LABS: MALB URINE SIEMENS 12.9 MG/L; MAU/CREAT RATIO 21.5 MCG/MG (0.0-30.0)
[2020-10-06 17:25] LABS: HEMOGLOBIN A1c 6.1 %
== END ==
LOC: M LAB 15:56
PROVIDERS: ATTEND Family Medicine
DX: E11.9 Type 2 diabetes mellitus without complications (principal)

== ENCOUNTER 2020-10-27 13:43 | Emergency (ER) | payer MEDICARE ==
[~2020-10-27] VITALS: Ht 182.9 cm; Wt 102.3 kg
[2020-10-27] MEDS ORDERED: PERC5TAB12 PO ×2 (14:20→15:54)
[2020-10-27] MEDS ORDERED: ISOVUE-370 76% 100ML VIAL As Ordered ONE (14:40)
[2020-10-27 14:42] LABS: BASO # 0.1 10^3/uL (0.0-0.2); BASO % 0.7 % (0.0-1.0); EOS # 0.1 10^3/uL (0.0-0.5); EOS % 0.6 % (0.0-3.0); HEMATOCRIT 48.6 % (42.0-52.0); LYMPH # 1.9 10^3/uL (1.5-5.0); LYMPH % 21.4 % (24.0-44.0); MEAN CORPUSCULAR HEMOGLOBIN 30.4 pg (27.0-33.0); MEAN CORPUSCULAR HGB CONC 32.9 g/dl (32.0-36.5); MEAN CORPUSCULAR VOLUME 92.2 fl (80.0-96.0); MONO # 1.5 10^3/uL (0.0-0.8); MONO % 16.8 % (2.0-8.0); NEUTROPHILS # 5.2 10^3/uL (1.5-8.5); NEUTROPHILS % 59.8 % (36.0-66.0); PLATELET COUNT, AUTOMATED 229 10^3/uL (150-450); RED BLOOD COUNT 5.27 10^6/uL (4.30-6.10)
[2020-10-27 14:47] LABS: WHITE BLOOD COUNT 8.6 10^3/uL (4.0-10.0)
[2020-10-27] MEDS ORDERED: MORPHINE 4 MG/ML 1ML VIAL/SYRINGE (J2270) IV PRN (15:00)
[2020-10-27] MEDS ORDERED: ONDANSETRON 4MG/2ML VIAL IV ONE (15:00)
--- NOTE | 2020-10-27 15:12 | REP ---
INDICATION: trauma COMPARISON: None TECHNIQUE: Axial contrast enhanced images from the thoracic inlet to the upper abdomen with coronal and sagittal reformations using 75 ml Isovue 370 intravenous contrast material. This CT examination was performed using the following dose reduction techniques: Automated exposure control, adjustment of mA and/or kv according to the patient's size, and use of iterative reconstruction technique. FINDINGS: Mild lingular and bibasilar atelectasis is appreciated along with very small amount of pleural fluid. No focal consolidation/contusion or pneumothorax. Tracheobronchial is patent. Mediastinum demonstrates normal thoracic aorta, pulmonary vasculature and heart/pericardium without evidence for injury. Atherosclerotic changes are identified. Right posterolateral nondisplaced 7th through 11th rib fractures are identified. Thoracic vertebral bodies and sternum appear intact. IMPRESSION: 1. Nondisplaced right 7th through 11th rib fractures identified along with mild bibasilar atelectasis. No pneumothorax. No significant effusion. <Electronically signed by Jason Murray > 10/27/20 [id number]
--- NOTE | 2020-10-27 15:19 | REP ---
INDICATION: trauma. COMPARISON: 05/03/2019 TECHNIQUE: Axial contrast-enhanced images from the lung bases to the pubic symphysis using 100 cc Isovue 370 intravenous contrast material. Coronal and sagittal reformations obtained. This CT examination was performed using the following dose reduction techniques: Automated exposure control, adjustment of mA and/or kv according to the patient's size, and the use of iterative reconstruction technique. FINDINGS: Liver demonstrates diffuse fatty infiltration. Spleen, pancreas, gallbladder, bilateral adrenal glands, and congenital horseshoe kidney appear relatively normal. There is no evidence for solid organ injury. No evidence for bowel obstruction or acute inflammatory process. No free air to suggest perforation. Colonic and sigmoid diverticula noted without acute diverticulitis. Pelvis demonstrates normal bladder and age-appropriate prostate/seminal vesicles. No ascites. No free air. No adenopathy. Atherosclerotic changes to the aorta and vasculature without aneurysm or dissection. Musculoskeletal structures demonstrate relatively stable chronic degenerative changes. Right rib fractures with bibasilar atelectasis noted (see chest CT report) IMPRESSION: 1. No evidence for solid organ injury. 2. Hepatosteatosis. 3. Congenital horseshoe kidney. 4. Scattered diverticula without acute diverticulitis. <Electronically signed by Jason Murray > 10/27/20 [id number]
[2020-10-27] MEDS ORDERED: PERCOCET 5MG/325MG TAB PO ONE (15:55)
[2020-10-27 16:15] VITALS: BP 138/91
== END 2020-10-27 16:29 | disposition home or self-care (01) ==
LOC: M ED 13:43
DX: S22.41XA Multiple fractures of ribs, right side, initial encounter for closed fracture (principal); J98.11 Atelectasis; W10.8XXA Fall (on) (from) other stairs and steps, initial encounter; Y92.098 Other place in other non-institutional residence as the place of occurrence of the external cause; I10 Essential (primary) hypertension; I25.10 Atherosclerotic heart disease of native coronary artery without angina pectoris; E78.9 Disorder of lipoprotein metabolism, unspecified; F17.200 Nicotine dependence, unspecified, uncomplicated; Z88.0 Allergy status to penicillin; Z88.1 Allergy status to other antibiotic agents; Z88.2 Allergy status to sulfonamides; Z91.030 Bee allergy status; Z79.899 Other long term (current) drug therapy; Z79.84 Long term (current) use of oral hypoglycemic drugs
CPT/HCPCS: 36415; 71260; 74177; 80047; 85025; 96374; 96375; 99284; J2270; J2405; Q9967

== ENCOUNTER → 2021-02-19 | Outpatient (CLI) | payer MEDICARE ==
[~2021-02-19] MED LIST changes: +PERC5TAB12 PO
[2021-02-19 14:30] LABS: BLOOD UREA NITROGEN 10 MG/DL (7-18); GLOMERULAR FILTRATION RATE > 60.0 (>56)
== END ==
LOC: M LAB 13:21
PROVIDERS: ATTEND Student in an Organized Health Care Education/Training Program
DX: D44.7 Neoplasm of uncertain behavior of aortic body and other paraganglia (principal)

== ENCOUNTER → 2021-02-21 | Outpatient (CLI) | payer MEDICARE ==
[~2021-02-21] MED LIST changes: +PROHANCE 279.3MG/ML 15ML VIAL As Ordered ONE; +PROHANCE 279.3MG/ML 5ML VIAL As Ordered ONE
--- NOTE | 2021-02-21 21:14 | REPVR ---
PROCEDURE INFORMATION: Exam: MR Neck Without and With Contrast Exam date and time: 02/21/2021 7:24 PM Age: 60 years old Clinical indication: Other: Neoplasm uncertainty paraganglia; Prior surgery; Surgery date: 6+ months TECHNIQUE: Imaging protocol: MR images of the neck without and with intravenous contrast. Contrast material: PROHANCE; Contrast volume: 20 ml; Contrast route: INTRAVENOUS (IV); COMPARISON: MRI ORBIT,FACE,NECK WITH CONT 01/11/2020 3:42 PM FINDINGS: Nasopharynx: Bilobed lobular enhancing mass measuring 2.5 x 1.1 x 1.9 cm demonstrated just lateral to the left longus colli muscle, posterior to the nasopharynx within the jugular fossa. Mass is decreased in size in comparison to the prior CT of 02/12/2019. Oropharynx: Unremarkable. Hypopharynx: Unremarkable. Larynx: Unremarkable. Submandibular/Parotid glands: Unremarkable. Paranasal sinuses: Completely opacified right maxillary sinus with soft tissue protruding into the nasal cavity. Findings may represent inflammatory disease although an antral choanal polyp or malignancy to be excluded. Inflammatory changes demonstrated in the sphenoid sinuses. No air-fluid levels. Retropharyngeal space: Unremarkable. Vasculature: Unremarkable. Lymph nodes: No lymphadenopathy. Soft tissues: Unremarkable. Bones/joints: Unremarkable. IMPRESSION: 1. Completely opacified right maxillary sinus with soft tissue protruding into the nasal cavity. Findings may represent inflammatory disease although an antral choanal polyp or malignancy to be excluded. 2. Left jugular fossa mass as described above. Differential diagnosis includes a glomus jugulare paraganglioma, jugular schwannoma, meningioma and metastatic disease. Electronically signed by: Roly Malhotra On 02/21/2021 21:13:40 PM
== END ==
LOC: M RAD 17:22
PROVIDERS: ATTEND Student in an Organized Health Care Education/Training Program
DX: D44.7 Neoplasm of uncertain behavior of aortic body and other paraganglia (principal)
CPT/HCPCS: 70543; A9576

== ENCOUNTER → 2021-06-05 | Outpatient (CLI) | payer MEDICARE ==
[~2021-06-05] MED LIST changes: -PROHANCE 279.3MG/ML 15ML VIAL As Ordered ONE; -PROHANCE 279.3MG/ML 5ML VIAL As Ordered ONE
[2021-06-05 13:20] LABS: BASO # 0.1 10^3/uL (0.0-0.2); BASO % 0.5 % (0.0-1.0); EOS # 0.1 10^3/uL (0.0-0.5); EOS % 1.2 % (0.0-3.0); HEMOGLOBIN 15.8 g/dl (13.5-17.5); LYMPH % 32.4 % (24.0-44.0); MEAN CORPUSCULAR HEMOGLOBIN 30.2 pg (27.0-33.0); MEAN CORPUSCULAR HGB CONC 32.2 g/dl (32.0-36.5); MEAN CORPUSCULAR VOLUME 93.7 fl (80.0-96.0); MONO # 0.9 10^3/uL (0.0-0.8); MONO % 9.2 % (2.0-8.0); NEUTROPHILS # 5.2 10^3/uL (1.5-8.5); PLATELET COUNT, AUTOMATED 221 10^3/uL (150-450); RED BLOOD COUNT 5.23 10^6/uL (4.30-6.10); WHITE BLOOD COUNT 9.2 10^3/uL (4.0-10.0)
[2021-06-05 13:52] LABS: FREE T4 0.98 NG/DL (0.76-1.46); THYROID STIMULATING HORMONE 0.725 uIU/ML (0.358-3.740)
[2021-06-05 14:19] LABS: FOLATE 5.7 NG/ML
== END ==
LOC: M LAB 12:53
PROVIDERS: ATTEND Student in an Organized Health Care Education/Training Program
DX: R41.3 Other amnesia (principal)
CPT/HCPCS: 36415; 82607; 82746; 84439; 84443; 85025; G0463

== ENCOUNTER 2021-11-28 15:07 | Emergency (ER) | payer MEDICARE, SELFPAY ==
[~2021-11-28] VITALS: Ht 182.9 cm; Wt 103.2 kg
[2021-11-28 15:10] VITALS: BP 112/65
[2021-11-29] MEDS ORDERED: CLON1TAB8 PO (08:48)
[2021-11-29] MEDS ORDERED: GABA800T4 PO (08:48)
[2021-11-29] MEDS ORDERED: ROSU20TA5 PO (08:48)
[2021-11-29] MEDS ORDERED: BACL10TA2 PO (08:48)
[2021-11-29] MEDS ORDERED: VITA100093 PO (08:48)
[2021-11-29] MEDS ORDERED: ROPI1TAB3 PO (08:48)
[2021-11-29] MEDS ORDERED: VITMTA PO (08:48)
[2021-11-29] MEDS ORDERED: NORT25CA2 PO (08:48)
[2021-11-29] MEDS ORDERED: LISI10TA24 PO (08:48)
[2021-11-29] MEDS ORDERED: FLUO20CA22 PO (08:48)
[2021-11-29] MEDS ORDERED: TRAZ-189 PO (08:48)
[2021-11-29] MEDS ORDERED: AMLO1TAB25 PO (08:48)
[2021-11-29] MEDS ORDERED: ASPI81TA26 PO (08:48)
[2021-11-29] MEDS ORDERED: ALLO100T PO (08:49)
== END 2021-11-28 17:36 | disposition left against medical advice (07) ==
LOC: M ED 15:07
DX: Z53.21 Procedure and treatment not carried out due to patient leaving prior to being seen by health care provider (principal)

== ENCOUNTER 2021-11-28 21:25 | Inpatient (IN) | payer OTHER ==
[~2021-11-28] VITALS: Ht 182.9 cm; Wt 102.9 kg
[2021-11-29] MEDS ORDERED: BOOSTRIX/ADACEL VACCINE (DIPHTH/PERTUSS/ACELL/TETANUS) 0.5ML SYR IM ONE (07:15)
[2021-11-29] MEDS ORDERED: MOXIFLOXACIN HCL 400 MG in IV 1 EA IV ONE (07:15)
[2021-11-29] MEDS ORDERED: CLINDAMYCIN 300 MG in IV 1 EA IV ONE (07:15)
[2021-11-29 07:56] LABS: BASO # 0.1 10^3/uL (0.0-0.2); BASO % 0.8 % (0.0-1.0); EOS # 0.2 10^3/uL (0.0-0.5); EOS % 2.1 % (0.0-3.0); HEMATOCRIT 45.2 % (42.0-52.0); HEMOGLOBIN 14.8 g/dl (13.5-17.5); LYMPH # 2.8 10^3/uL (1.5-5.0); LYMPH % 28.6 % (24.0-44.0); MEAN CORPUSCULAR HEMOGLOBIN 28.8 pg (27.0-33.0); MEAN CORPUSCULAR HGB CONC 32.7 g/dl (32.0-36.5); MEAN CORPUSCULAR VOLUME 87.9 fl (80.0-96.0); MONO % 10.3 % (2.0-8.0); NEUTROPHILS # 5.6 10^3/uL (1.5-8.5); NEUTROPHILS % 56.8 % (36.0-66.0); PLATELET COUNT, AUTOMATED 314 10^3/uL (150-450); RED BLOOD COUNT 5.14 10^6/uL (4.30-6.10); WHITE BLOOD COUNT 9.9 10^3/uL (4.0-10.0)
[2021-11-29 08:07] LABS: BLOOD UREA NITROGEN 14 MG/DL (7-18); C REACTIVE PROTEIN QUANTITATIV 1.48 MG/DL (0.00-0.30); CALCIUM LEVEL 9.5 MG/DL (8.8-10.2); CARBON DIOXIDE LEVEL 27 MEQ/L (21-32); CHLORIDE LEVEL 102 MEQ/L (98-107); CREATININE FOR GFR 0.75 MG/DL (0.70-1.30); ETHYL ALCOHOL (ETHANOL) < 0.003 % (0.000-0.010); GLOMERULAR FILTRATION RATE > 60.0 (>49); GLUCOSE, FASTING 166 MG/DL (70-100); POTASSIUM SERUM 4.5 MEQ/L (3.5-5.1); SODIUM LEVEL 134 MEQ/L (136-145)
[2021-11-29 08:14] LABS: ERYTHROCYTE SEDIMENTATION RATE 22 mm/hr (0-20)
[2021-11-29] MEDS ORDERED: KETOROLAC 30 MG/ML 1ML VIAL IV ONE (08:30)
[2021-11-29] MEDS ORDERED: CLON1TAB8 PO (08:48)
[2021-11-29] MEDS ORDERED: FLUO20CA22 PO (08:48)
[2021-11-29] MEDS ORDERED: VITA100093 PO (08:48)
[2021-11-29] MEDS ORDERED: LISI10TA24 PO (08:48)
[2021-11-29] MEDS ORDERED: GABA800T4 PO (08:48)
[2021-11-29] MEDS ORDERED: ROSU20TA5 PO (08:48)
[2021-11-29] MEDS ORDERED: BACL10TA2 PO (08:48)
[2021-11-29] MEDS ORDERED: ASPI81TA26 PO (08:48)
[2021-11-29] MEDS ORDERED: AMLO1TAB25 PO (08:48)
[2021-11-29] MEDS ORDERED: ROPI1TAB3 PO (08:48)
[2021-11-29] MEDS ORDERED: TRAZ-189 PO (08:48)
[2021-11-29] MEDS ORDERED: NORT25CA2 PO (08:48)
[2021-11-29] MEDS ORDERED: VITMTA PO (08:48)
[2021-11-29] MEDS ORDERED: ALLO100T PO (08:49)
[2021-11-29] MEDS ORDERED: HOME MED LIST COMPLETE! XX SCH (08:50)
[2021-11-29] MEDS: NORTRIPTYLINE 25 MG CAP PO SCH ×2 (09:00→21:05)
[2021-11-29 09:17] LABS: RSV AMPLIFICATION NEGATIVE (NEGATIVE)
[2021-11-29] MEDS: FLUoxetine 20MG CAP PO SCH (12:02)
[2021-11-29] MEDS: allopurinoL 100 MG TAB PO SCH (12:02)
[2021-11-29] MEDS: ROSUVASTATIN 10 MG TAB (CRESTOR) PO SCH (12:02)
[2021-11-29] MEDS: hydroCHLOROthiazide 12.5 MG CAPSULE PO SCH (12:03)
[2021-11-29] MEDS: MULTIVITAMINS/MINERALS THERAP 1 TAB PO SCH (12:03)
[2021-11-29 13:45] VITALS: BP 122/86
[2021-11-29 14:00] VITALS: BP 121/81
[2021-11-29] MEDS: ACETAMINOPHEN TAB 650MG DOSE (2X325MG) PO PRN (14:15)
[2021-11-29] MEDS: GABAPENTIN 400MG CAP PO SCH ×2 (15:43→21:05)
[2021-11-29] MEDS: BACLOFEN 10 MG TAB PO SCH ×2 (15:43→21:07)
[2021-11-29] MEDS ORDERED: DEXTROSE 50% 50 ML SYRINGE IV PRN (16:30)
[2021-11-29] MEDS ORDERED: GLUCAGON INJ 1MG VIAL SC PRN (16:30)
[2021-11-29] MEDS ORDERED: GLUCOSE 4GM CHEW TABLET PO PRN (16:30)
[2021-11-29] MEDS: INSULIN LISPRO (NovoLOG) PER UNIT SC SCH ×2 (17:45→21:00)
[2021-11-29] MEDS: traZODone 100 MG TAB PO SCH (21:05)
[2021-11-29] MEDS: rOPINIRole 1MG TAB PO SCH (21:05)
[2021-11-29] MEDS: clonazePAM 1 MG TAB PO SCH (21:05)
[2021-11-29] MEDS: KETOROLAC 30 MG/ML 1ML VIAL IV PRN (21:07)
[2021-11-29 22:00] VITALS: BP 122/79
[2021-11-30] MEDS: KETOROLAC 30 MG/ML 1ML VIAL IV PRN ×4 (03:21→21:36)
[2021-11-30 06:00] VITALS: BP 118/74
[2021-11-30 07:01] LABS: HEMATOCRIT 45.2 % (42.0-52.0); HEMOGLOBIN 14.6 g/dl (13.5-17.5); MEAN CORPUSCULAR HEMOGLOBIN 28.5 pg (27.0-33.0); MEAN CORPUSCULAR HGB CONC 32.3 g/dl (32.0-36.5); MEAN CORPUSCULAR VOLUME 88.3 fl (80.0-96.0); PLATELET COUNT, AUTOMATED 302 10^3/uL (150-450); RED BLOOD COUNT 5.12 10^6/uL (4.30-6.10); WHITE BLOOD COUNT 10.9 10^3/uL (4.0-10.0)
[2021-11-30 07:27] LABS: BLOOD UREA NITROGEN 15 MG/DL (7-18); C REACTIVE PROTEIN QUANTITATIV 1.44 MG/DL (0.00-0.30); CALCIUM LEVEL 8.9 MG/DL (8.8-10.2); CARBON DIOXIDE LEVEL 26 MEQ/L (21-32); CHLORIDE LEVEL 103 MEQ/L (98-107); CREATININE FOR GFR 0.84 MG/DL (0.70-1.30); GLOMERULAR FILTRATION RATE > 60.0 (>49); GLUCOSE, FASTING 138 MG/DL (70-100); MAGNESIUM LEVEL 2.2 MG/DL (1.8-2.4); POTASSIUM SERUM 4.1 MEQ/L (3.5-5.1); SODIUM LEVEL 137 MEQ/L (136-145)
[2021-11-30] MEDS: INSULIN LISPRO (NovoLOG) PER UNIT SC SCH ×4 (08:11→20:48)
[2021-11-30] MEDS: MOXIFLOXACIN HCL 400 MG in IV 1 EA IV SCH (08:12)
[2021-11-30] MEDS: ROSUVASTATIN 10 MG TAB (CRESTOR) PO SCH (08:12)
[2021-11-30] MEDS: GABAPENTIN 400MG CAP PO SCH ×3 (08:13→20:47)
[2021-11-30] MEDS: FLUoxetine 20MG CAP PO SCH (08:13)
[2021-11-30] MEDS: BACLOFEN 10 MG TAB PO SCH ×3 (08:14→20:47)
[2021-11-30] MEDS: allopurinoL 100 MG TAB PO SCH (08:15)
[2021-11-30] MEDS: MULTIVITAMINS/MINERALS THERAP 1 TAB PO SCH (08:15)
[2021-11-30] MEDS: NORTRIPTYLINE 25 MG CAP PO SCH ×2 (08:16→20:46)
[2021-11-30] MEDS: hydroCHLOROthiazide 12.5 MG CAPSULE PO SCH (08:36)
[2021-11-30] MEDS: ENOXAPARIN 40MG/0.4ML SYRINGE (J1650 PER 10MG) SC SCH (12:59)
[2021-11-30] MEDS: ACETAMINOPHEN TAB 650MG DOSE (2X325MG) PO PRN ×2 (13:10→20:51)
[2021-11-30 14:29] VITALS: BP 122/82
[2021-11-30] MEDS: rOPINIRole 1MG TAB PO SCH (20:46)
[2021-11-30] MEDS: clonazePAM 1 MG TAB PO SCH (20:47)
[2021-11-30] MEDS: traZODone 100 MG TAB PO SCH (20:47)
[2021-11-30 22:00] VITALS: BP 129/85
[2021-12-01] MEDS: RAMELTEON 8 MG TAB (ROZEREM) PO PRN ×2 (02:02→21:17)
[2021-12-01] MEDS: KETOROLAC 30 MG/ML 1ML VIAL IV PRN ×4 (05:08→23:49)
[2021-12-01 06:00] VITALS: BP 122/63
[2021-12-01 06:13] LABS: HEMATOCRIT 42.6 % (42.0-52.0); HEMOGLOBIN 14.2 g/dl (13.5-17.5); MEAN CORPUSCULAR HEMOGLOBIN 29.3 pg (27.0-33.0); MEAN CORPUSCULAR HGB CONC 33.3 g/dl (32.0-36.5); PLATELET COUNT, AUTOMATED 248 10^3/uL (150-450); RED BLOOD COUNT 4.84 10^6/uL (4.30-6.10); WHITE BLOOD COUNT 8.1 10^3/uL (4.0-10.0)
[2021-12-01 06:40] LABS: BLOOD UREA NITROGEN 16 MG/DL (7-18); C REACTIVE PROTEIN QUANTITATIV 1.51 MG/DL (0.00-0.30); CALCIUM LEVEL 9.3 MG/DL (8.8-10.2); CARBON DIOXIDE LEVEL 30 MEQ/L (21-32); CHLORIDE LEVEL 104 MEQ/L (98-107); CREATININE FOR GFR 0.95 MG/DL (0.70-1.30); GLOMERULAR FILTRATION RATE > 60.0 (>49); GLUCOSE, FASTING 125 MG/DL (70-100); MAGNESIUM LEVEL 2.3 MG/DL (1.8-2.4); POTASSIUM SERUM 4.6 MEQ/L (3.5-5.1); SODIUM LEVEL 138 MEQ/L (136-145)
[2021-12-01] MEDS: allopurinoL 100 MG TAB PO SCH (08:20)
[2021-12-01] MEDS: INSULIN LISPRO (NovoLOG) PER UNIT SC SCH ×4 (08:20→21:00)
[2021-12-01] MEDS: NORTRIPTYLINE 25 MG CAP PO SCH ×2 (08:21→21:17)
[2021-12-01] MEDS: MULTIVITAMINS/MINERALS THERAP 1 TAB PO SCH (08:21)
[2021-12-01] MEDS: BACLOFEN 10 MG TAB PO SCH ×3 (08:21→21:18)
[2021-12-01] MEDS: GABAPENTIN 400MG CAP PO SCH ×3 (08:21→21:18)
[2021-12-01] MEDS: FLUoxetine 20MG CAP PO SCH (08:22)
[2021-12-01] MEDS: ENOXAPARIN 40MG/0.4ML SYRINGE (J1650 PER 10MG) SC SCH (08:22)
[2021-12-01] MEDS: ROSUVASTATIN 10 MG TAB (CRESTOR) PO SCH (08:22)
[2021-12-01] MEDS: MOXIFLOXACIN HCL 400 MG in IV 1 EA IV SCH (08:23)
[2021-12-01] MEDS: hydroCHLOROthiazide 12.5 MG CAPSULE PO SCH (08:28)
[2021-12-01 14:00] VITALS: BP 118/65
[2021-12-01] MEDS: ACETAMINOPHEN TAB 650MG DOSE (2X325MG) PO PRN (14:39)
[2021-12-01] MEDS ORDERED: PERCOCET 5MG/325MG TAB PO ONE (17:40)
[2021-12-01 20:00] VITALS: BP 125/67
[2021-12-01] MEDS: rOPINIRole 1MG TAB PO SCH (21:17)
[2021-12-01] MEDS: traZODone 100 MG TAB PO SCH (21:17)
[2021-12-01] MEDS: clonazePAM 1 MG TAB PO SCH (21:18)
[2021-12-01 22:00] VITALS: BP 125/67
[2021-12-02] MEDS: KETOROLAC 30 MG/ML 1ML VIAL IV PRN (05:38)
[2021-12-02] MEDS ORDERED: PERCOCET 5MG/325MG TAB PO PRN (05:50)
[2021-12-02 06:00] VITALS: BP 108/66
[2021-12-02 07:16] LABS: HEMATOCRIT 44.8 % (42.0-52.0); HEMOGLOBIN 14.5 g/dl (13.5-17.5); MEAN CORPUSCULAR HEMOGLOBIN 29.1 pg (27.0-33.0); MEAN CORPUSCULAR HGB CONC 32.4 g/dl (32.0-36.5); PLATELET COUNT, AUTOMATED 291 10^3/uL (150-450); RED BLOOD COUNT 4.98 10^6/uL (4.30-6.10); WHITE BLOOD COUNT 7.4 10^3/uL (4.0-10.0)
[2021-12-02 07:33] LABS: BLOOD UREA NITROGEN 15 MG/DL (7-18); C REACTIVE PROTEIN QUANTITATIV 1.85 MG/DL (0.00-0.30); CALCIUM LEVEL 8.7 MG/DL (8.8-10.2); CARBON DIOXIDE LEVEL 29 MEQ/L (21-32); CHLORIDE LEVEL 105 MEQ/L (98-107); CREATININE FOR GFR 1.01 MG/DL (0.70-1.30); GLOMERULAR FILTRATION RATE > 60.0 (>49); GLUCOSE, FASTING 120 MG/DL (70-100); MAGNESIUM LEVEL 2.2 MG/DL (1.8-2.4); POTASSIUM SERUM 5.2 MEQ/L (3.5-5.1); SODIUM LEVEL 138 MEQ/L (136-145)
[2021-12-02] MEDS: MOXIFLOXACIN HCL 400 MG in IV 1 EA IV SCH (08:27)
[2021-12-02] MEDS: INSULIN LISPRO (NovoLOG) PER UNIT SC SCH ×4 (08:27→20:31)
[2021-12-02] MEDS: ENOXAPARIN 40MG/0.4ML SYRINGE (J1650 PER 10MG) SC SCH (08:27)
[2021-12-02] MEDS: NORTRIPTYLINE 25 MG CAP PO SCH ×2 (08:28→20:37)
[2021-12-02] MEDS: FLUoxetine 20MG CAP PO SCH (08:28)
[2021-12-02] MEDS: BACLOFEN 10 MG TAB PO SCH ×3 (08:28→20:37)
[2021-12-02] MEDS: ROSUVASTATIN 10 MG TAB (CRESTOR) PO SCH (08:29)
[2021-12-02] MEDS: allopurinoL 100 MG TAB PO SCH (08:30)
[2021-12-02] MEDS: GABAPENTIN 400MG CAP PO SCH ×3 (08:30→20:37)
[2021-12-02] MEDS: MULTIVITAMINS/MINERALS THERAP 1 TAB PO SCH (08:31)
[2021-12-02] MEDS: hydroCHLOROthiazide 12.5 MG CAPSULE PO SCH (08:35)
[2021-12-02] MEDS ORDERED: FUROSEMIDE 40MG/4ML VIAL (J1940) IV ONE (10:40)
[2021-12-02] MEDS: PERCOCET 5MG/325MG TAB PO PRN ×2 (11:54→18:00)
[2021-12-02] MEDS ORDERED: PATIROMER SORBITEX CALCIUM 8.4 GM POWDER PACKET (VELTASSA) PO ONE (12:00)
[2021-12-02 14:00] VITALS: BP 121/69
[2021-12-02 15:33] LABS: BLOOD UREA NITROGEN 15 MG/DL (7-18); CALCIUM LEVEL 9.1 MG/DL (8.8-10.2); CARBON DIOXIDE LEVEL 29 MEQ/L (21-32); CHLORIDE LEVEL 102 MEQ/L (98-107); CREATININE FOR GFR 1.01 MG/DL (0.70-1.30); GLOMERULAR FILTRATION RATE > 60.0 (>49); GLUCOSE, FASTING 94 MG/DL (70-100); POTASSIUM SERUM 4.5 MEQ/L (3.5-5.1); SODIUM LEVEL 136 MEQ/L (136-145)
[2021-12-02] MEDS: traZODone 100 MG TAB PO SCH (20:37)
[2021-12-02] MEDS: rOPINIRole 1MG TAB PO SCH (20:37)
[2021-12-02] MEDS: clonazePAM 1 MG TAB PO SCH (20:37)
[2021-12-02] MEDS: RAMELTEON 8 MG TAB (ROZEREM) PO PRN (20:43)
[2021-12-02 22:00] VITALS: BP 126/73
[2021-12-03] MEDS: PERCOCET 5MG/325MG TAB PO PRN ×4 (00:01→18:29)
[2021-12-03 06:00] VITALS: BP 121/76
[2021-12-03 06:30] LABS: HEMATOCRIT 41.8 % (42.0-52.0); HEMOGLOBIN 13.5 g/dl (13.5-17.5); MEAN CORPUSCULAR HEMOGLOBIN 28.9 pg (27.0-33.0); MEAN CORPUSCULAR HGB CONC 32.3 g/dl (32.0-36.5); MEAN CORPUSCULAR VOLUME 89.5 fl (80.0-96.0); PLATELET COUNT, AUTOMATED 246 10^3/uL (150-450); RED BLOOD COUNT 4.67 10^6/uL (4.30-6.10); WHITE BLOOD COUNT 6.6 10^3/uL (4.0-10.0)
[2021-12-03 06:51] LABS: BLOOD UREA NITROGEN 13 MG/DL (7-18); C REACTIVE PROTEIN QUANTITATIV 1.08 MG/DL (0.00-0.30); CALCIUM LEVEL 8.6 MG/DL (8.8-10.2); CARBON DIOXIDE LEVEL 31 MEQ/L (21-32); CHLORIDE LEVEL 105 MEQ/L (98-107); CREATININE FOR GFR 0.86 MG/DL (0.70-1.30); GLOMERULAR FILTRATION RATE > 60.0 (>49); GLUCOSE, FASTING 100 MG/DL (70-100); MAGNESIUM LEVEL 2.1 MG/DL (1.8-2.4); SODIUM LEVEL 139 MEQ/L (136-145)
[2021-12-03] MEDS: INSULIN LISPRO (NovoLOG) PER UNIT SC SCH ×4 (07:30→21:00)
[2021-12-03] MEDS: MOXIFLOXACIN HCL 400 MG in IV 1 EA IV SCH (08:54)
[2021-12-03] MEDS: GABAPENTIN 400MG CAP PO SCH ×3 (08:54→21:22)
[2021-12-03] MEDS: ROSUVASTATIN 10 MG TAB (CRESTOR) PO SCH (08:55)
[2021-12-03] MEDS: hydroCHLOROthiazide 12.5 MG CAPSULE PO SCH (08:56)
[2021-12-03] MEDS: allopurinoL 100 MG TAB PO SCH (08:57)
[2021-12-03] MEDS: NORTRIPTYLINE 25 MG CAP PO SCH ×2 (08:57→21:21)
[2021-12-03] MEDS: MULTIVITAMINS/MINERALS THERAP 1 TAB PO SCH (08:57)
[2021-12-03] MEDS: FLUoxetine 20MG CAP PO SCH (08:57)
[2021-12-03] MEDS: BACLOFEN 10 MG TAB PO SCH ×3 (08:57→21:22)
[2021-12-03] MEDS: ENOXAPARIN 40MG/0.4ML SYRINGE (J1650 PER 10MG) SC SCH (09:00)
[2021-12-03 14:00] VITALS: BP 113/75
[2021-12-03] MEDS: RAMELTEON 8 MG TAB (ROZEREM) PO PRN (21:21)
[2021-12-03] MEDS: clonazePAM 1 MG TAB PO SCH (21:21)
[2021-12-03] MEDS: traZODone 100 MG TAB PO SCH (21:21)
[2021-12-03] MEDS: rOPINIRole 1MG TAB PO SCH (21:21)
[2021-12-03 21:33] VITALS: BP 122/77
[2021-12-04] MEDS: PERCOCET 5MG/325MG TAB PO PRN ×4 (01:13→23:39)
[2021-12-04 06:50] VITALS: BP 113/74
[2021-12-04 06:58] LABS: HEMATOCRIT 45.2 % (42.0-52.0); HEMOGLOBIN 14.5 g/dl (13.5-17.5); MEAN CORPUSCULAR HEMOGLOBIN 28.7 pg (27.0-33.0); MEAN CORPUSCULAR HGB CONC 32.1 g/dl (32.0-36.5); MEAN CORPUSCULAR VOLUME 89.5 fl (80.0-96.0); PLATELET COUNT, AUTOMATED 247 10^3/uL (150-450); RED BLOOD COUNT 5.05 10^6/uL (4.30-6.10); WHITE BLOOD COUNT 7.7 10^3/uL (4.0-10.0)
[2021-12-04 07:18] LABS: BLOOD UREA NITROGEN 14 MG/DL (7-18); CALCIUM LEVEL 9.4 MG/DL (8.8-10.2); CARBON DIOXIDE LEVEL 28 MEQ/L (21-32); CHLORIDE LEVEL 106 MEQ/L (98-107); CREATININE FOR GFR 0.81 MG/DL (0.70-1.30); GLOMERULAR FILTRATION RATE > 60.0 (>49); GLUCOSE, FASTING 99 MG/DL (70-100); MAGNESIUM LEVEL 2.3 MG/DL (1.8-2.4); POTASSIUM SERUM 4.4 MEQ/L (3.5-5.1); SODIUM LEVEL 137 MEQ/L (136-145)
[2021-12-04] MEDS: INSULIN LISPRO (NovoLOG) PER UNIT SC SCH ×4 (07:30→21:00)
[2021-12-04 08:40] LABS: C REACTIVE PROTEIN QUANTITATIV 1.24 MG/DL (0.00-0.30)
[2021-12-04] MEDS: ROSUVASTATIN 10 MG TAB (CRESTOR) PO SCH (09:18)
[2021-12-04] MEDS: allopurinoL 100 MG TAB PO SCH (09:18)
[2021-12-04] MEDS: GABAPENTIN 400MG CAP PO SCH ×3 (09:18→23:22)
[2021-12-04] MEDS: BACLOFEN 10 MG TAB PO SCH ×3 (09:18→23:22)
[2021-12-04] MEDS: MULTIVITAMINS/MINERALS THERAP 1 TAB PO SCH (09:18)
[2021-12-04] MEDS: MOXIFLOXACIN HCL 400 MG in IV 1 EA IV SCH (09:18)
[2021-12-04] MEDS: NORTRIPTYLINE 25 MG CAP PO SCH ×2 (09:19→23:22)
[2021-12-04] MEDS: FLUoxetine 20MG CAP PO SCH (09:19)
[2021-12-04] MEDS: hydroCHLOROthiazide 12.5 MG CAPSULE PO SCH (09:20)
[2021-12-04 17:05] VITALS: BP 113/75
[2021-12-04] MEDS ORDERED: fentaNYL 100 MCG/2 ML INJECTION As Ordered ONE ×2 (19:14→20:07)
[2021-12-04] MEDS ORDERED: MIDAZOLAM INJ 2MG/2ML VIAL (J2250 PER 1MG) As Ordered ONE (19:14)
[2021-12-04] MEDS ORDERED: BUPIVACAINE HCL 0.25% 30ML VIAL As Ordered ONE (19:15)
[2021-12-04] MEDS ORDERED: ceFAZolin 1GM VIAL (J0690 PER 500MG) As Ordered ONE ×2 (19:15→20:18)
[2021-12-04] MEDS ORDERED: LIDOCAINE 2% 100MG/5ML SDV (FOR ANES.) As Ordered ONE (19:16)
[2021-12-04] MEDS ORDERED: ONDANSETRON 4MG/2ML VIAL As Ordered ONE (19:16)
[2021-12-04] MEDS ORDERED: propofoL 200 MG/20 ML VIAL As Ordered ONE ×2 (19:16→19:54)
[2021-12-04] MEDS ORDERED: propofoL 500 MG/50 ML VIAL As Ordered ONE (20:01)
[2021-12-04] MEDS ORDERED: METOPROLOL 5 MG/5 ML VIAL As Ordered ONE (20:18)
[2021-12-04] MEDS ORDERED: ONDANSETRON 4MG/2ML VIAL IV PRN (20:35)
[2021-12-04] MEDS ORDERED: LR 1,000 ML IV SCH (20:35)
[2021-12-04] MEDS ORDERED: hydrALAZINE 20MG/ML 1ML VIAL (J0360 PER 20MG) As Ordered ONE (20:48)
[2021-12-04] MEDS: hydrALAZINE 20MG/ML 1ML VIAL (J0360 PER 20MG) IV PRN ×4 (20:50→21:08)
[2021-12-04] MEDS: fentaNYL 100 MCG/2 ML INJECTION IV PRN ×4 (20:55→21:14)
[2021-12-04] MEDS: oxyCODONE 5MG TAB PO PRN ×2 (20:55→21:24)
[2021-12-04] MEDS ORDERED: hydrALAZINE 20MG/ML 1ML VIAL (J0360 PER 20MG) IV PRN (21:10)
[2021-12-04] MEDS: MORPHINE 2 MG/ML 1ML VIAL IV PRN ×2 (21:19→21:24)
[2021-12-04] MEDS: HYDROMORPHONE HCL 0.5 MG/ 0.5 ML SYRINGE (J1170 PER 1) IV PRN ×3 (21:40→21:52)
[2021-12-04 22:30] VITALS: BP 127/90
[2021-12-04 23:00] VITALS: BP 130/89
[2021-12-04] MEDS: RAMELTEON 8 MG TAB (ROZEREM) PO PRN (23:21)
[2021-12-04] MEDS: traZODone 100 MG TAB PO SCH (23:22)
[2021-12-04] MEDS: ACETAMINOPHEN TAB 650MG DOSE (2X325MG) PO PRN (23:22)
[2021-12-04] MEDS: rOPINIRole 1MG TAB PO SCH (23:22)
[2021-12-04] MEDS: clonazePAM 1 MG TAB PO SCH (23:23)
[2021-12-04 23:35] VITALS: BP 133/86
[2021-12-05] VITALS (10 sets, daily range): BP systolic 114–163; BP diastolic 59–95
[2021-12-05] MEDS: ACETAMINOPHEN TAB 650MG DOSE (2X325MG) PO PRN (04:25)
[2021-12-05] MEDS: PERCOCET 5MG/325MG TAB PO PRN ×4 (05:37→23:42)
[2021-12-05 06:10] LABS: HEMATOCRIT 45.1 % (42.0-52.0); HEMOGLOBIN 14.8 g/dl (13.5-17.5); MEAN CORPUSCULAR HEMOGLOBIN 29.2 pg (27.0-33.0); MEAN CORPUSCULAR HGB CONC 32.8 g/dl (32.0-36.5); MEAN CORPUSCULAR VOLUME 89.1 fl (80.0-96.0); PLATELET COUNT, AUTOMATED 243 10^3/uL (150-450); RED BLOOD COUNT 5.06 10^6/uL (4.30-6.10); WHITE BLOOD COUNT 12.9 10^3/uL (4.0-10.0)
[2021-12-05 07:23] LABS: BLOOD UREA NITROGEN 13 MG/DL (7-18); C REACTIVE PROTEIN QUANTITATIV 1.56 MG/DL (0.00-0.30); CALCIUM LEVEL 9.3 MG/DL (8.8-10.2); CARBON DIOXIDE LEVEL 31 MEQ/L (21-32); CHLORIDE LEVEL 100 MEQ/L (98-107); CREATININE FOR GFR 0.87 MG/DL (0.70-1.30); GLOMERULAR FILTRATION RATE > 60.0 (>49); GLUCOSE, FASTING 113 MG/DL (70-100); MAGNESIUM LEVEL 2.1 MG/DL (1.8-2.4); POTASSIUM SERUM 5.3 MEQ/L (3.5-5.1); SODIUM LEVEL 136 MEQ/L (136-145)
[2021-12-05] MEDS: INSULIN LISPRO (NovoLOG) PER UNIT SC SCH ×4 (07:30→21:00)
[2021-12-05] MEDS: hydroCHLOROthiazide 12.5 MG CAPSULE PO SCH ×2 (09:00→09:55)
[2021-12-05] MEDS: ENOXAPARIN 40MG/0.4ML SYRINGE (J1650 PER 10MG) SC SCH (09:53)
[2021-12-05] MEDS: MOXIFLOXACIN HCL 400 MG in IV 1 EA IV SCH (09:53)
[2021-12-05] MEDS: ROSUVASTATIN 10 MG TAB (CRESTOR) PO SCH (09:54)
[2021-12-05] MEDS: NORTRIPTYLINE 25 MG CAP PO SCH ×2 (09:54→21:12)
[2021-12-05] MEDS: GABAPENTIN 400MG CAP PO SCH ×3 (09:55→21:11)
[2021-12-05] MEDS: MULTIVITAMINS/MINERALS THERAP 1 TAB PO SCH (09:56)
[2021-12-05] MEDS: BACLOFEN 10 MG TAB PO SCH ×3 (09:56→21:11)
[2021-12-05] MEDS: allopurinoL 100 MG TAB PO SCH (09:56)
[2021-12-05] MEDS: FLUoxetine 20MG CAP PO SCH (09:56)
[2021-12-05] MEDS ORDERED: SOD POLYSTYRENE SULFONATE SUSP 15GM 60ML UD PO ONE (10:00)
[2021-12-05 17:23] LABS: BLOOD UREA NITROGEN 18 MG/DL (7-18); CALCIUM LEVEL 9.2 MG/DL (8.8-10.2); CARBON DIOXIDE LEVEL 23 MEQ/L (21-32); CHLORIDE LEVEL 102 MEQ/L (98-107); CREATININE FOR GFR 0.89 MG/DL (0.70-1.30); GLOMERULAR FILTRATION RATE > 60.0 (>49); GLUCOSE, FASTING 88 MG/DL (70-100); POTASSIUM SERUM 4.3 MEQ/L (3.5-5.1); SODIUM LEVEL 132 MEQ/L (136-145)
[2021-12-05] MEDS: clonazePAM 1 MG TAB PO SCH (21:11)
[2021-12-05] MEDS: traZODone 100 MG TAB PO SCH (21:11)
[2021-12-05] MEDS: RAMELTEON 8 MG TAB (ROZEREM) PO PRN (21:12)
[2021-12-05] MEDS: rOPINIRole 1MG TAB PO SCH (21:12)
[2021-12-06] MEDS: PERCOCET 5MG/325MG TAB PO PRN ×4 (05:45→23:49)
[2021-12-06] MEDS ORDERED: NS 500 ML IV ONE (05:50)
[2021-12-06 06:00] VITALS: BP 98/72
[2021-12-06 07:28] LABS: HEMATOCRIT 40.3 % (42.0-52.0); MEAN CORPUSCULAR HEMOGLOBIN 28.7 pg (27.0-33.0); MEAN CORPUSCULAR HGB CONC 32.3 g/dl (32.0-36.5); PLATELET COUNT, AUTOMATED 237 10^3/uL (150-450); RED BLOOD COUNT 4.53 10^6/uL (4.30-6.10); WHITE BLOOD COUNT 9.1 10^3/uL (4.0-10.0)
[2021-12-06] MEDS: INSULIN LISPRO (NovoLOG) PER UNIT SC SCH ×4 (07:30→21:00)
[2021-12-06 07:54] LABS: BLOOD UREA NITROGEN 11 MG/DL (7-18); C REACTIVE PROTEIN QUANTITATIV 9.02 MG/DL (0.00-0.30); CALCIUM LEVEL 8.4 MG/DL (8.8-10.2); CARBON DIOXIDE LEVEL 32 MEQ/L (21-32); CHLORIDE LEVEL 103 MEQ/L (98-107); CREATININE FOR GFR 0.94 MG/DL (0.70-1.30); GLOMERULAR FILTRATION RATE > 60.0 (>49); GLUCOSE, FASTING 114 MG/DL (70-100); MAGNESIUM LEVEL 2.2 MG/DL (1.8-2.4); POTASSIUM SERUM 4.7 MEQ/L (3.5-5.1); SODIUM LEVEL 138 MEQ/L (136-145)
[2021-12-06 09:00] VITALS: BP 103/66
[2021-12-06] MEDS: ENOXAPARIN 40MG/0.4ML SYRINGE (J1650 PER 10MG) SC SCH (09:18)
[2021-12-06] MEDS: NORTRIPTYLINE 25 MG CAP PO SCH ×2 (09:19→21:22)
[2021-12-06] MEDS: BACLOFEN 10 MG TAB PO SCH ×3 (09:19→21:22)
[2021-12-06] MEDS: MULTIVITAMINS/MINERALS THERAP 1 TAB PO SCH (09:19)
[2021-12-06] MEDS: FLUoxetine 20MG CAP PO SCH (09:19)
[2021-12-06] MEDS: ROSUVASTATIN 10 MG TAB (CRESTOR) PO SCH (09:19)
[2021-12-06] MEDS: allopurinoL 100 MG TAB PO SCH (09:19)
[2021-12-06] MEDS: GABAPENTIN 400MG CAP PO SCH ×3 (09:19→21:21)
[2021-12-06] MEDS: hydroCHLOROthiazide 12.5 MG CAPSULE PO SCH (09:19)
[2021-12-06] MEDS: MOXIFLOXACIN HCL 400 MG in IV 1 EA IV SCH (09:19)
[2021-12-06] MEDS: NS 1,000 ML IV SCH ×2 (10:08→21:21)
[2021-12-06 14:00] VITALS: BP 116/70
[2021-12-06] MEDS: ACETAMINOPHEN TAB 650MG DOSE (2X325MG) PO PRN (16:31)
[2021-12-06 19:30] LABS: HEPATITIS C VIRUS ABY INDEX 0.1 INDEX (<0.8); HIV 1&2 SCREEN CENTAUR NEGATIVE (NEGATIVE)
[2021-12-06 20:00] VITALS: BP 116/71
[2021-12-06] MEDS: clonazePAM 1 MG TAB PO SCH (21:21)
[2021-12-06] MEDS: rOPINIRole 1MG TAB PO SCH (21:22)
[2021-12-06] MEDS: RAMELTEON 8 MG TAB (ROZEREM) PO PRN (21:22)
[2021-12-06] MEDS: traZODone 100 MG TAB PO SCH (21:22)
[2021-12-07] MEDS: MOXIFLOXACIN 400 MG TAB PO SCH (05:57)
[2021-12-07] MEDS: PERCOCET 5MG/325MG TAB PO PRN ×4 (05:58→20:45)
[2021-12-07 06:00] VITALS: BP 110/69
[2021-12-07 06:25] LABS: BASO % 0.5 % (0.0-1.0); EOS # 0.2 10^3/uL (0.0-0.5); EOS % 2.2 % (0.0-3.0); HEMATOCRIT 37.7 % (42.0-52.0); HEMOGLOBIN 12.4 g/dl (13.5-17.5); LYMPH # 2.4 10^3/uL (1.5-5.0); LYMPH % 30.8 % (24.0-44.0); MEAN CORPUSCULAR HEMOGLOBIN 29.3 pg (27.0-33.0); MEAN CORPUSCULAR HGB CONC 32.9 g/dl (32.0-36.5); MEAN CORPUSCULAR VOLUME 89.1 fl (80.0-96.0); MONO % 12.7 % (2.0-8.0); NEUTROPHILS # 4.1 10^3/uL (1.5-8.5); PLATELET COUNT, AUTOMATED 226 10^3/uL (150-450); RED BLOOD COUNT 4.23 10^6/uL (4.30-6.10); WHITE BLOOD COUNT 7.8 10^3/uL (4.0-10.0)
[2021-12-07 06:55] LABS: BLOOD UREA NITROGEN 10 MG/DL (7-18); C REACTIVE PROTEIN QUANTITATIV 7.17 MG/DL (0.00-0.30); CALCIUM LEVEL 8.7 MG/DL (8.8-10.2); CARBON DIOXIDE LEVEL 28 MEQ/L (21-32); CHLORIDE LEVEL 108 MEQ/L (98-107); CREATININE FOR GFR 0.64 MG/DL (0.70-1.30); GLOMERULAR FILTRATION RATE > 60.0 (>49); GLUCOSE, FASTING 91 MG/DL (70-100); MAGNESIUM LEVEL 2.2 MG/DL (1.8-2.4); POTASSIUM SERUM 4.1 MEQ/L (3.5-5.1); SODIUM LEVEL 140 MEQ/L (136-145)
[2021-12-07] MEDS: INSULIN LISPRO (NovoLOG) PER UNIT SC SCH ×4 (07:30→20:45)
[2021-12-07] MEDS: NORTRIPTYLINE 25 MG CAP PO SCH ×2 (09:23→20:43)
[2021-12-07] MEDS: BACLOFEN 10 MG TAB PO SCH ×3 (09:23→20:43)
[2021-12-07] MEDS: GABAPENTIN 400MG CAP PO SCH ×3 (09:23→20:44)
[2021-12-07] MEDS: FLUoxetine 20MG CAP PO SCH (09:23)
[2021-12-07] MEDS: ROSUVASTATIN 10 MG TAB (CRESTOR) PO SCH (09:23)
[2021-12-07] MEDS: allopurinoL 100 MG TAB PO SCH (09:23)
[2021-12-07] MEDS: MULTIVITAMINS/MINERALS THERAP 1 TAB PO SCH (09:23)
[2021-12-07] MEDS: ENOXAPARIN 40MG/0.4ML SYRINGE (J1650 PER 10MG) SC SCH (09:24)
[2021-12-07 14:00] VITALS: BP 109/64
[2021-12-07] MEDS: clonazePAM 1 MG TAB PO SCH (20:43)
[2021-12-07] MEDS: rOPINIRole 1MG TAB PO SCH (20:43)
[2021-12-07] MEDS: traZODone 100 MG TAB PO SCH (20:44)
[2021-12-07] MEDS: RAMELTEON 8 MG TAB (ROZEREM) PO PRN (20:44)
[2021-12-07 22:00] VITALS: BP 124/75
[2021-12-08] MEDS: PERCOCET 5MG/325MG TAB PO PRN ×4 (02:44→16:38)
[2021-12-08] MEDS: MOXIFLOXACIN 400 MG TAB PO SCH (05:13)
[2021-12-08 06:00] VITALS: BP 119/73
[2021-12-08 06:33] LABS: BASO # 0.1 10^3/uL (0.0-0.2); BASO % 0.7 % (0.0-1.0); EOS # 0.2 10^3/uL (0.0-0.5); EOS % 2.7 % (0.0-3.0); HEMATOCRIT 40.3 % (42.0-52.0); HEMOGLOBIN 12.8 g/dl (13.5-17.5); LYMPH # 2.7 10^3/uL (1.5-5.0); LYMPH % 37.9 % (24.0-44.0); MEAN CORPUSCULAR HEMOGLOBIN 28.2 pg (27.0-33.0); MEAN CORPUSCULAR HGB CONC 31.8 g/dl (32.0-36.5); MEAN CORPUSCULAR VOLUME 88.8 fl (80.0-96.0); MONO % 13.7 % (2.0-8.0); NEUTROPHILS # 3.1 10^3/uL (1.5-8.5); NEUTROPHILS % 44.1 % (36.0-66.0); PLATELET COUNT, AUTOMATED 248 10^3/uL (150-450); RED BLOOD COUNT 4.54 10^6/uL (4.30-6.10)
[2021-12-08 06:55] LABS: BLOOD UREA NITROGEN 9 MG/DL (7-18); C REACTIVE PROTEIN QUANTITATIV 4.62 MG/DL (0.00-0.30); CARBON DIOXIDE LEVEL 28 MEQ/L (21-32); CHLORIDE LEVEL 106 MEQ/L (98-107); CREATININE FOR GFR 0.69 MG/DL (0.70-1.30); GLOMERULAR FILTRATION RATE > 60.0 (>49); GLUCOSE, FASTING 99 MG/DL (70-100); MAGNESIUM LEVEL 2.1 MG/DL (1.8-2.4); SODIUM LEVEL 139 MEQ/L (136-145)
[2021-12-08] MEDS: INSULIN LISPRO (NovoLOG) PER UNIT SC SCH ×2 (07:30→11:02)
[2021-12-08] MEDS: FLUoxetine 20MG CAP PO SCH (08:37)
[2021-12-08] MEDS: MULTIVITAMINS/MINERALS THERAP 1 TAB PO SCH (08:37)
[2021-12-08] MEDS: GABAPENTIN 400MG CAP PO SCH ×2 (08:38→16:37)
[2021-12-08] MEDS: ROSUVASTATIN 10 MG TAB (CRESTOR) PO SCH (08:38)
[2021-12-08] MEDS: NORTRIPTYLINE 25 MG CAP PO SCH (08:38)
[2021-12-08] MEDS: allopurinoL 100 MG TAB PO SCH (08:38)
[2021-12-08] MEDS: BACLOFEN 10 MG TAB PO SCH ×2 (08:38→16:39)
[2021-12-08 09:00] VITALS: BP 130/71
[2021-12-08] MEDS: ENOXAPARIN 40MG/0.4ML SYRINGE (J1650 PER 10MG) SC SCH (09:18)
[2021-12-08] MEDS ORDERED: PERCOCET PO (09:40)
[2021-12-08] MEDS ORDERED: MOXI400T11 PO (09:40)
[2021-12-08 14:00] VITALS: BP 122/73
== END 2021-12-08 17:00 | disposition home or self-care (01) | DRG 982 ==
LOC: M ED 21:25 → M ED INP 11-29 10:07 → ENRESERV 11-29 10:26 → M MS5PR 11-29 12:29
PROVIDERS: ADMIT Family Medicine; ATTEND Internal Medicine
PROC: 0KBD0ZZ Excision of Left Hand Muscle, Open Approach (ICD-10-PCS; 2021-12-04)
PROC: 0LB70ZZ Excision of Right Hand Tendon, Open Approach (ICD-10-PCS; principal; 2021-12-04 08:21)
DX: S61.412A Laceration without foreign body of left hand, initial encounter (principal); L02.512 Cutaneous abscess of left hand; L02.511 Cutaneous abscess of right hand; W54.0XXA Bitten by dog, initial encounter; Y93.K9 Activity, other involving animal care; S61.211A Laceration without foreign body of left index finger without damage to nail, initial encounter; Y92.89 Other specified places as the place of occurrence of the external cause; Y99.9 Unspecified external cause status; I10 Essential (primary) hypertension; J45.909 Unspecified asthma, uncomplicated; F32.A Depression, unspecified; E87.5 Hyperkalemia; G25.81 Restless legs syndrome; E78.5 Hyperlipidemia, unspecified; M10.9 Gout, unspecified; I25.10 Atherosclerotic heart disease of native coronary artery without angina pectoris; B96.89 Other specified bacterial agents as the cause of diseases classified elsewhere; E11.40 Type 2 diabetes mellitus with diabetic neuropathy, unspecified; B95.1 Streptococcus, group B, as the cause of diseases classified elsewhere; F41.9 Anxiety disorder, unspecified; Z79.82 Long term (current) use of aspirin; Z87.891 Personal history of nicotine dependence; Z79.899 Other long term (current) drug therapy; Z88.0 Allergy status to penicillin; Z88.1 Allergy status to other antibiotic agents; Z88.2 Allergy status to sulfonamides; Z88.8 Allergy status to other drugs, medicaments and biological substances; Z91.030 Bee allergy status

== ENCOUNTER 2021-12-10 20:39 | Emergency (ER) | payer OTHER ==
[~2021-12-10] VITALS: Ht 182.9 cm; Wt 105.5 kg
[~2021-12-10 20:39] MED LIST changes: +ALLO100T PO; +AMLO1TAB25 PO; +ASPI81TA26 PO; +BACL10TA2 PO; +CLON1TAB8 PO; +FLUO20CA22 PO; +GABA800T4 PO; +LISI10TA24 PO; +MOXI400T11 PO; +PERCOCET PO; +ROPI1TAB3 PO; +ROSU20TA5 PO; +TRAZ-189 PO; +VITA100093 PO; +VITMTA PO
[2021-12-11 01:22] VITALS: BP 137/72
== END 2021-12-11 01:23 | disposition home or self-care (01) ==
LOC: M ED 20:39
DX: S61.452D Open bite of left hand, subsequent encounter (principal); W54.0XXD Bitten by dog, subsequent encounter; E11.9 Type 2 diabetes mellitus without complications; I10 Essential (primary) hypertension; E78.5 Hyperlipidemia, unspecified; G25.81 Restless legs syndrome; Z87.891 Personal history of nicotine dependence; Z88.0 Allergy status to penicillin; Z88.2 Allergy status to sulfonamides; Z88.1 Allergy status to other antibiotic agents; Z91.030 Bee allergy status; Z79.899 Other long term (current) drug therapy; Z79.82 Long term (current) use of aspirin

== ENCOUNTER → 2021-12-13 | Outpatient (CLI) | payer OTHER ==
[2021-12-13 15:24] LABS: BASO # 0.1 10^3/uL (0.0-0.2); BASO % 0.8 % (0.0-1.0); EOS # 0.2 10^3/uL (0.0-0.5); EOS % 2.5 % (0.0-3.0); HEMATOCRIT 40.1 % (42.0-52.0); HEMOGLOBIN 12.8 g/dl (13.5-17.5); LYMPH # 2.3 10^3/uL (1.5-5.0); MEAN CORPUSCULAR HEMOGLOBIN 29.2 pg (27.0-33.0); MEAN CORPUSCULAR HGB CONC 31.9 g/dl (32.0-36.5); MEAN CORPUSCULAR VOLUME 91.6 fl (80.0-96.0); MONO # 0.9 10^3/uL (0.0-0.8); MONO % 9.4 % (2.0-8.0); NEUTROPHILS % 62.3 % (36.0-66.0); PLATELET COUNT, AUTOMATED 257 10^3/uL (150-450); RED BLOOD COUNT 4.38 10^6/uL (4.30-6.10); WHITE BLOOD COUNT 9.6 10^3/uL (4.0-10.0)
[2021-12-13 15:50] LABS: ERYTHROCYTE SEDIMENTATION RATE 31 mm/hr (0-20)
== END ==
LOC: M PLALAB 14:10
PROVIDERS: ATTEND Internal Medicine Infectious Disease
DX: L02.519 Cutaneous abscess of unspecified hand (principal)

== ENCOUNTER → 2022-03-21 | Outpatient (CLI) | payer OTHER | LOC: M SOG 08:10 | PROVIDERS: ATTEND Orthopaedic Surgery Hand Surgery | DX: M25.712 Osteophyte, left shoulder (principal) ==

== ENCOUNTER → 2023-05-06 | Outpatient (CLI) | payer OTHER ==
[~2023-05-06] MED LIST changes: +PROHANCE 279.3MG/ML 15ML VIAL ONE; +PROHANCE 279.3MG/ML 5ML VIAL ONE; -ROPI1TAB3 PO; +ROPI1TAB73 PO; -ROSU20TA5 PO; +ROSU20TA61 PO
== END ==
LOC: M PLAIMG 10:42
PROVIDERS: ATTEND Otolaryngology
DX: D33.3 Benign neoplasm of cranial nerves (principal)
CPT/HCPCS: 70543; A9576

== ENCOUNTER → 2023-06-03 | Outpatient (CLI) | payer OTHER ==
[~2023-06-03] MED LIST changes: -PROHANCE 279.3MG/ML 15ML VIAL ONE; -PROHANCE 279.3MG/ML 5ML VIAL ONE
== END ==
LOC: M PLAIMG 12:28
PROVIDERS: ATTEND Otolaryngology
DX: J32.0 Chronic maxillary sinusitis (principal)

== ENCOUNTER → 2023-07-24 | Outpatient (CLI) | payer OTHER ==
[2023-07-24 15:54] LABS: ALBUMIN 3.6 G/DL (3.2-5.2); ALKALINE PHOSPHATASE 121 U/L (46-116); ALT/SGPT 29 U/L (7.0-40); AST/SGOT 24 U/L (<34); BILIRUBIN,TOTAL 0.4 MG/DL (0.3-1.2); BLOOD UREA NITROGEN 17 MG/DL (9-23); CARBON DIOXIDE LEVEL 33 MMOL/L (20-31); CHLORIDE LEVEL 104 MMOL/L (98-107); GLOMERULAR FILTRATION RATE > 60.0 (>49); GLUCOSE, FASTING 123 MG/DL (74-106); POTASSIUM SERUM 4.5 MMOL/L (3.5-5.1); SODIUM LEVEL 141 MMOL/L (136-145); TOTAL PROTEIN 6.5 G/DL (5.7-8.2)
[2023-07-24 16:14] LABS: HEMOGLOBIN A1c 6.6 % (4.0-6.0)
== END ==
LOC: M PLALAB 13:56
PROVIDERS: ATTEND Family Medicine
DX: E11.9 Type 2 diabetes mellitus without complications (principal); R79.89 Other specified abnormal findings of blood chemistry

== ENCOUNTER → 2023-08-09 | Outpatient (CLI) | payer OTHER ==
[2023-08-09 11:45] LABS: FERRITIN 208.6 NG/ML (10.5-307.3); PERCENT SATURATION 34.6 % (19.7-50.0); PROLACTIN 5.85 NG/ML (2.1-17.7)
[2023-08-09 11:46] LABS: THYROID STIMULATING HORMONE 1.507 uIU/ML (0.55-4.78)
[2023-08-09 11:48] LABS: FREE T4 1.05 NG/DL (0.89-1.76)
== END ==
LOC: M LAB 10:05
PROVIDERS: ATTEND Family Medicine
DX: R79.89 Other specified abnormal findings of blood chemistry (principal); E07.9 Disorder of thyroid, unspecified

== ENCOUNTER → 2024-01-16 | Outpatient (CLI) | payer OTHER ==
[~2024-01-16] MED LIST changes: +ALBU8.5H INH; +FLUO-365 PO; -FLUO20CA22 PO; +METF500T13 PO; +PANT20TA6 PO; +ROSU5TAB40 PO; -ROSU5TAB5 PO
[2024-01-16 15:08] LABS: HEMATOCRIT 41.5 % (42.0-52.0); HEMOGLOBIN 13.7 g/dl (13.5-17.5); MEAN CORPUSCULAR HEMOGLOBIN 31.6 pg (27.0-33.0); MEAN CORPUSCULAR VOLUME 95.6 fl (80.0-96.0); PLATELET COUNT, AUTOMATED 193 10^3/uL (150-450); RED BLOOD COUNT 4.34 10^6/uL (4.30-6.10); WHITE BLOOD COUNT 7.6 10^3/uL (4.0-10.0)
[2024-01-16 15:44] LABS: ALBUMIN 3.6 G/DL (3.2-5.2); ALKALINE PHOSPHATASE 100 U/L (46-116); ALT/SGPT 70 U/L (7.0-40); AST/SGOT 31 U/L (<34); BILIRUBIN,TOTAL 0.3 MG/DL (0.3-1.2); BLOOD UREA NITROGEN 11 MG/DL (9-23); CALCIUM LEVEL 8.8 MG/DL (8.3-10.6); CARBON DIOXIDE LEVEL 32 MMOL/L (20-31); CHLORIDE LEVEL 104 MMOL/L (98-107); CREATININE FOR GFR 0.78 MG/DL (0.70-1.30); GLOMERULAR FILTRATION RATE > 60.0 (>49); GLUCOSE, FASTING 112 MG/DL (74-106); POTASSIUM SERUM 4.2 MMOL/L (3.5-5.1); SODIUM LEVEL 139 MMOL/L (136-145); TOTAL PROTEIN 5.8 G/DL (5.7-8.2)
== END ==
LOC: M EKG 14:20
PROVIDERS: ATTEND Anesthesiology
DX: I25.10 Atherosclerotic heart disease of native coronary artery without angina pectoris (principal)

== ENCOUNTER 2024-01-29 10:27 | Observation (INO) | payer OTHER ==
[~2024-01-29] VITALS: Ht 182.9 cm; Wt 104.3 kg
[2024-01-29] VITALS (10 sets, daily range): BP systolic 122–130; BP diastolic 66–80; TEMP 97.2–98.6; O2SAT 91–97
[2024-01-29] MEDS ORDERED: LIDOCAINE 2% 100MG/5ML SDV (FOR ANES.) As Ordered ONE (10:41)
[2024-01-29] MEDS ORDERED: fentaNYL 100 MCG/2 ML INJECTION As Ordered ONE (10:43)
[2024-01-29] MEDS ORDERED: ROCURONIUM BROMIDE 50MG/5ML VIAL As Ordered ONE (10:43)
[2024-01-29] MEDS ORDERED: SUGAMMADEX SODIUM 500 MG/5 ML VIAL (BRIDION) As Ordered ONE (10:44)
[2024-01-29] MEDS ORDERED: propofoL 200 MG/20 ML VIAL As Ordered ONE (10:44)
[2024-01-29] MEDS ORDERED: ONDANSETRON 4MG 2ML VIAL As Ordered ONE (10:44)
[2024-01-29] MEDS ORDERED: LR 1,000 ML IV SCH (10:45)
[2024-01-29] MEDS ORDERED: LIDOCAINE 1% SDV 5ML VIAL SC PRN (10:45)
[2024-01-29] MEDS ORDERED: SUCCINYLCHOLINE 100MG/5ML SYRINGE As Ordered ONE (12:33)
[2024-01-29] MEDS ORDERED: LACRILUBE (AKWA TEARS) OPHTH OINT 3.5GM As Ordered ONE (12:42)
[2024-01-29] MEDS ORDERED: ePHEDrine SULFATE 25 MG/5 ML(5MG/ML) SYRINGE As Ordered ONE (12:43)
[2024-01-29] MEDS ORDERED: PHENYLephrine 500MCG 5ML (100MCG/ML) SYRINGE As Ordered ONE (12:43)
[2024-01-29] MEDS ORDERED: ACETAMINOPHEN 1000MG 100ML IV BAG As Ordered ONE (12:52)
[2024-01-29] MEDS: LIDOCAINE W/EPINEPHRINE 1% 20ML VIAL As Ordered ONE (13:30)
[2024-01-29] MEDS: EPINEPHrine 1MG/ML INJ 30ML MD-VIAL As Ordered ONE (13:30)
[2024-01-29] MEDS: METHYLENE BLUE 0.5% (5MG/ML) 10 ML AMP (PROVAYBLUE) As Ordered ONE (13:30)
[2024-01-29] MEDS ORDERED: oxyCODONE 5MG TAB PO PRN (13:45)
[2024-01-29] MEDS ORDERED: ONDANSETRON 4MG 2ML VIAL IV PRN (13:45)
[2024-01-29] MEDS ORDERED: fentaNYL 100 MCG/2 ML INJECTION IV PRN (13:45)
[2024-01-29] MEDS: SODIUM CHLORIDE 0.9% NASAL GEL 15GM (AYR) As Ordered ONE (13:47)
[2024-01-29] MEDS ORDERED: LABETALOL 100MG/20ML VIAL As Ordered ONE (13:54)
[2024-01-29] MEDS: HYDROMORPHONE HCL 0.5 MG/ 0.5 ML SYRINGE IV PRN (15:02)
[2024-01-29 16:08] LABS: BASO # 0.1 10^3/uL (0.0-0.2); BASO % 0.5 % (0.0-1.0); EOS # 0.1 10^3/uL (0.0-0.5); EOS % 0.6 % (0.0-3.0); HEMATOCRIT 45.1 % (42.0-52.0); HEMOGLOBIN 15.2 g/dl (13.5-17.5); LYMPH # 1.3 10^3/uL (1.5-5.0); LYMPH % 10.6 % (24.0-44.0); MEAN CORPUSCULAR HEMOGLOBIN 31.9 pg (27.0-33.0); MEAN CORPUSCULAR HGB CONC 33.7 g/dl (32.0-36.5); MEAN CORPUSCULAR VOLUME 94.7 fl (80.0-96.0); MONO # 0.4 10^3/uL (0.0-0.8); MONO % 3.2 % (2.0-8.0); NEUTROPHILS # 10.5 10^3/uL (1.5-8.5); PLATELET COUNT, AUTOMATED 193 10^3/uL (150-450); RED BLOOD COUNT 4.76 10^6/uL (4.30-6.10); WHITE BLOOD COUNT 12.7 10^3/uL (4.0-10.0)
[2024-01-29 16:28] LABS: BLOOD UREA NITROGEN 15 MG/DL (9-23); CALCIUM LEVEL 8.8 MG/DL (8.3-10.6); CARBON DIOXIDE LEVEL 29 MMOL/L (20-31); CHLORIDE LEVEL 103 MMOL/L (98-107); CREATININE FOR GFR 0.77 MG/DL (0.70-1.30); GLOMERULAR FILTRATION RATE > 60.0 (>49); GLUCOSE, FASTING 105 MG/DL (74-106); POTASSIUM SERUM 4.6 MMOL/L (3.5-5.1); SODIUM LEVEL 136 MMOL/L (136-145)
[2024-01-29 16:39] LABS: HEMOGLOBIN A1c 5.7 % (4.0-6.0)
[2024-01-29] MEDS ORDERED: ALBUTEROL 90 MCG/ACT 8GM HFA INHALER INH PRN (16:45)
[2024-01-29] MEDS: LR 1,000 ML IV SCH (18:46)
[2024-01-29] MEDS: ACETAMINOPHEN TAB 650MG DOSE (2X325MG) PO PRN (18:50)
[2024-01-29] MEDS: rOPINIRole 1MG TAB PO SCH (21:07)
[2024-01-29] MEDS: NORTRIPTYLINE 25 MG CAP PO SCH (21:07)
[2024-01-29] MEDS: clonazePAM 1 MG TAB PO SCH (21:07)
[2024-01-29] MEDS: BACLOFEN 10 MG TAB PO SCH (21:07)
[2024-01-29] MEDS: SODIUM CHLORIDE NASAL 0.65% SPRAY BTL (OCEAN) SCH (22:24)
[2024-01-29] MEDS: NORCO, ANEXSIA 5/325MG TABLET (HYDROcodone/ACETAMINOPHEN) PO ONE (22:24)
[2024-01-30 00:03] VITALS: O2SAT 95
[2024-01-30 03:35] VITALS: BP 105/69; TEMP 97.7; O2SAT 96
[2024-01-30 06:14] LABS: BASO % 0.2 % (0.0-1.0); EOS % 0.1 % (0.0-3.0); HEMATOCRIT 44.8 % (42.0-52.0); HEMOGLOBIN 14.9 g/dl (13.5-17.5); LYMPH # 1.1 10^3/uL (1.5-5.0); LYMPH % 9.6 % (24.0-44.0); MEAN CORPUSCULAR HEMOGLOBIN 31.2 pg (27.0-33.0); MEAN CORPUSCULAR HGB CONC 33.3 g/dl (32.0-36.5); MEAN CORPUSCULAR VOLUME 93.7 fl (80.0-96.0); MONO # 0.3 10^3/uL (0.0-0.8); MONO % 2.6 % (2.0-8.0); PLATELET COUNT, AUTOMATED 192 10^3/uL (150-450); RED BLOOD COUNT 4.78 10^6/uL (4.30-6.10); WHITE BLOOD COUNT 11.7 10^3/uL (4.0-10.0)
[2024-01-30 07:25] VITALS: BP 126/82; TEMP 97.5; O2SAT 96
[2024-01-30 08:23] VITALS: BP 110/71
[2024-01-30] MEDS: VITAMIN D 1,000 INTERNATIONAL UNITS TABLET PO SCH (08:24)
[2024-01-30] MEDS: ROSUVASTATIN 10 MG TAB (CRESTOR) PO SCH (08:24)
[2024-01-30] MEDS: PANTOPRAZOLE 20 MG TAB PO SCH (08:24)
[2024-01-30] MEDS: allopurinoL 100 MG TAB PO SCH (08:24)
[2024-01-30] MEDS: FLUoxetine 20MG CAP PO SCH (08:24)
[2024-01-30] MEDS: ASPIRIN 81MG ENTERIC TABLET PO SCH (08:24)
[2024-01-30] MEDS ORDERED: Sodium Chloride Nasal Spray (09:02)
[2024-01-30 11:25] VITALS: BP 113/76; TEMP 97.9; O2SAT 96
== END 2024-01-30 12:45 | disposition home or self-care (01) ==
LOC: M SDC 10:27 → M MSPAV 10:28
PROVIDERS: ADMIT Internal Medicine; ATTEND Internal Medicine
DX: J01.01 Acute recurrent maxillary sinusitis (principal); J01.21 Acute recurrent ethmoidal sinusitis; R04.2 Hemoptysis; D72.829 Elevated white blood cell count, unspecified; R51.9 Headache, unspecified; I25.10 Atherosclerotic heart disease of native coronary artery without angina pectoris; I25.2 Old myocardial infarction; G47.30 Sleep apnea, unspecified; Z91.198 Patient's noncompliance with other medical treatment and regimen for other reason; I10 Essential (primary) hypertension; E78.5 Hyperlipidemia, unspecified; E11.9 Type 2 diabetes mellitus without complications; L28.1 Prurigo nodularis; K21.9 Gastro-esophageal reflux disease without esophagitis; M10.9 Gout, unspecified; M54.12 Radiculopathy, cervical region; M79.601 Pain in right arm; G25.81 Restless legs syndrome; M19.90 Unspecified osteoarthritis, unspecified site; F41.9 Anxiety disorder, unspecified; F03.90 Unspecified dementia, unspecified severity, without behavioral disturbance, psychotic disturbance, mood disturbance, and anxiety; R41.3 Other amnesia; J45.909 Unspecified asthma, uncomplicated; R06.02 Shortness of breath; G25.2 Other specified forms of tremor; Z87.891 Personal history of nicotine dependence; Z86.69 Personal history of other diseases of the nervous system and sense organs; Z96.651 Presence of right artificial knee joint; Z98.890 Other specified postprocedural states; Z83.3 Family history of diabetes mellitus; Z88.1 Allergy status to other antibiotic agents; Z88.0 Allergy status to penicillin; Z88.2 Allergy status to sulfonamides; Z91.030 Bee allergy status; Z79.899 Other long term (current) drug therapy; Z79.82 Long term (current) use of aspirin
CPT/HCPCS: 31254; 31256; 36415; 61782; 80048; 83036; 85025; 88305; 96374; 96376; C2625; G0378; J0131; J0171; J0330; J1100; J1170; J1920; J2371; J2405; J3010; Q9968

== ENCOUNTER 2024-03-05 00:09 | Emergency (ER) | payer OTHER ==
[~2024-03-05] VITALS: Ht 182.9 cm; Wt 104.5 kg
[~2024-03-05 00:09] MED LIST changes: +GABA-1635 PO; -GABA800T4 PO; +Sodium Chloride Nasal Spray
[2024-03-05 00:22] VITALS: TEMP 93
[2024-03-05 01:11] LABS: BASO # 0.1 10^3/uL (0.0-0.2); BASO % 0.5 % (0.0-1.0); EOS # 0.3 10^3/uL (0.0-0.5); EOS % 2.2 % (0.0-3.0); HEMATOCRIT 50.1 % (42.0-52.0); HEMOGLOBIN 16.8 g/dl (13.5-17.5); LYMPH # 2.9 10^3/uL (1.5-5.0); LYMPH % 25.2 % (24.0-44.0); MEAN CORPUSCULAR HEMOGLOBIN 31.6 pg (27.0-33.0); MEAN CORPUSCULAR HGB CONC 33.5 g/dl (32.0-36.5); MEAN CORPUSCULAR VOLUME 94.2 fl (80.0-96.0); MONO % 8.4 % (2.0-8.0); NEUTROPHILS # 7.1 10^3/uL (1.5-8.5); NEUTROPHILS % 62.6 % (36.0-66.0); PLATELET COUNT, AUTOMATED 203 10^3/uL (150-450); RED BLOOD COUNT 5.32 10^6/uL (4.30-6.10); WHITE BLOOD COUNT 11.4 10^3/uL (4.0-10.0)
[2024-03-05 01:20] LABS: BLOOD UREA NITROGEN 8 MG/DL (9-23); CALCIUM LEVEL 8.8 MG/DL (8.3-10.6); CARBON DIOXIDE LEVEL 28 MMOL/L (20-31); CHLORIDE LEVEL 101 MMOL/L (98-107); CREATININE FOR GFR 0.69 MG/DL (0.70-1.30); GLOMERULAR FILTRATION RATE > 60.0 (>49); GLUCOSE, FASTING 149 MG/DL (74-106); POTASSIUM SERUM 4.1 MMOL/L (3.5-5.1); SODIUM LEVEL 136 MMOL/L (136-145)
[2024-03-05 01:30] LABS: INR 0.95; PROTHROMBIN TIME 12.4 SECONDS (12.5-14.5)
[2024-03-05] MEDS: NS 1,000 ML IV SCH (02:10)
[2024-03-05 02:21] LABS: ETHYL ALCOHOL (ETHANOL) 0.298 % (0.000-0.010)
[2024-03-05 06:40] VITALS: BP 125/82; O2SAT 100
== END 2024-03-05 07:13 | disposition home or self-care (01) ==
LOC: EDBD 00:09 → M ED 00:09
DX: F10.120 Alcohol abuse with intoxication, uncomplicated (principal); S00.03XA Contusion of scalp, initial encounter; S50.01XA Contusion of right elbow, initial encounter; Y92.019 Unspecified place in single-family (private) house as the place of occurrence of the external cause; Y93.9 Activity, unspecified; Y99.9 Unspecified external cause status; W19.XXXA Unspecified fall, initial encounter; J45.909 Unspecified asthma, uncomplicated; I10 Essential (primary) hypertension; E78.5 Hyperlipidemia, unspecified; F32.A Depression, unspecified; Z88.0 Allergy status to penicillin; Z88.1 Allergy status to other antibiotic agents; Z88.2 Allergy status to sulfonamides; Z91.030 Bee allergy status; Z79.51 Long term (current) use of inhaled steroids; Z79.1 Long term (current) use of non-steroidal anti-inflammatories (NSAID); Z79.2 Long term (current) use of antibiotics; Z79.899 Other long term (current) drug therapy

== ENCOUNTER → 2024-03-11 | Outpatient (CLI) | payer OTHER ==
[~2024-03-11] MED LIST changes: +PROHANCE 279.3MG/ML 15ML VIAL As Ordered ONE; +PROHANCE 279.3MG/ML 5ML VIAL As Ordered ONE
== END ==
LOC: M RAD 09:08
PROVIDERS: ATTEND Otolaryngology
DX: D33.3 Benign neoplasm of cranial nerves (principal)
CPT/HCPCS: 70543; A9576

== ENCOUNTER → 2024-09-20 | Outpatient (CLI) | payer MEDICARE ==
[~2024-09-20] MED LIST changes: -PROHANCE 279.3MG/ML 15ML VIAL As Ordered ONE; +PROHANCE 279.3MG/ML 15ML VIAL ONE; -PROHANCE 279.3MG/ML 5ML VIAL As Ordered ONE; +PROHANCE 279.3MG/ML 5ML VIAL ONE; -ROSU20TA61 PO; +ROSU20TA86 PO; -ROSU5TAB40 PO; +ROSU5TAB49 PO
== END ==
LOC: M PLAIMG 11:44
PROVIDERS: ATTEND Otolaryngology
DX: D33.9 Benign neoplasm of central nervous system, unspecified (principal); J38.01 Paralysis of vocal cords and larynx, unilateral
CPT/HCPCS: 70543; A9576

== ENCOUNTER → 2024-10-21 | Outpatient (CLI) | payer MEDICARE ==
[~2024-10-21] MED LIST changes: -PROHANCE 279.3MG/ML 15ML VIAL ONE; -PROHANCE 279.3MG/ML 5ML VIAL ONE
== END ==
LOC: M PLARAD 13:56
PROVIDERS: ATTEND Otolaryngology
DX: D33.3 Benign neoplasm of cranial nerves (principal)

== ENCOUNTER → 2025-04-11 | Outpatient (REF) | payer MEDICARE, OTHER ==
[2025-04-11 18:25] LABS: PLATELET COUNT, AUTOMATED 249 10^3/uL (150-450)
[2025-04-11 18:26] LABS: CALCIUM LEVEL 9.3 MG/DL (8.3-10.6); CARBON DIOXIDE LEVEL 33 MMOL/L (20-31); CHLORIDE LEVEL 100 MMOL/L (98-107); CHOLESTEROL LEVEL 134 MG/DL (<200); CHOLESTEROL RISK RATIO 3.50 (<5); CREATININE FOR GFR 0.92 MG/DL (0.70-1.30); GLOMERULAR FILTRATION RATE > 90.0 (>49); LDL CHOLESTEROL 54.6 MG/DL (<100); NON-HDL-C 95.8 MG/DL; POTASSIUM SERUM 4.2 MMOL/L (3.5-5.1); SODIUM LEVEL 139 MMOL/L (136-145); TRIGLYCERIDES LEVEL 206 MG/DL (<150)
[2025-04-11 18:44] LABS: ESTIMATED AVERAGE GLUCOSE 146.0 MG/DL (60-110)
== END ==
LOC: M SFHCLERA 13:20
PROVIDERS: ATTEND Family Medicine
DX: Z00.00 Encounter for general adult medical examination without abnormal findings (principal); Z79.899 Other long term (current) drug therapy